=== PATIENT | male | born 1970 | race Caucasian/White ===

== ENCOUNTER → 2020-05-01 14:31 | Outpatient (BNVA) | payer MEDICAID, SELFPAY | PROVIDERS: PCP Internal Medicine Geriatric Medicine; Referring Provider Internal Medicine Geriatric Medicine; Visit Provider Internal Medicine Cardiovascular Disease | DX: I09.9 Rheumatic heart disease, unspecified (principal); I63.9 Cerebral infarction, unspecified; Z51.81 Encounter for therapeutic drug level monitoring; Z79.01 Long term (current) use of anticoagulants; Z95.2 Presence of prosthetic heart valve | CPT/HCPCS: 93005; 99212 ==

== ENCOUNTER → 2020-08-08 15:52 | Outpatient (BNVA) | payer MEDICAID, SELFPAY | PROVIDERS: PCP Internal Medicine Geriatric Medicine; Visit Provider Internal Medicine | DX: Z95.2 Presence of prosthetic heart valve (principal); Z51.81 Encounter for therapeutic drug level monitoring; Z79.01 Long term (current) use of anticoagulants | CPT/HCPCS: 85610; 99211 ==

== ENCOUNTER → 2020-09-05 16:05 | Outpatient (BNVA) | payer MEDICAID, SELFPAY | PROVIDERS: PCP Internal Medicine Geriatric Medicine; Visit Provider Internal Medicine | DX: Z95.2 Presence of prosthetic heart valve (principal); Z51.81 Encounter for therapeutic drug level monitoring; Z79.01 Long term (current) use of anticoagulants | CPT/HCPCS: 85610; 99211 ==

== ENCOUNTER → 2020-10-02 11:51 | Outpatient (BNVA) | payer MEDICAID, SELFPAY | PROVIDERS: PCP Internal Medicine Geriatric Medicine; Visit Provider Internal Medicine | DX: Z95.2 Presence of prosthetic heart valve (principal); Z91.19 Patient's noncompliance with other medical treatment and regimen; Z79.01 Long term (current) use of anticoagulants; Z51.81 Encounter for therapeutic drug level monitoring | CPT/HCPCS: 85610; 99211 ==

== ENCOUNTER → 2021-01-15 15:48 | Outpatient (BNVA) | payer MEDICAID, SELFPAY | PROVIDERS: PCP Internal Medicine Geriatric Medicine; Visit Provider Internal Medicine | DX: Z95.2 Presence of prosthetic heart valve (principal); Z51.81 Encounter for therapeutic drug level monitoring; Z79.01 Long term (current) use of anticoagulants | CPT/HCPCS: 85610; 99211 ==

== ENCOUNTER → 2021-02-12 12:41 | Outpatient (REF) | payer MEDICAID, SELFPAY ==
--- NOTE | 2021-02-12 12:47 | CA_ITS ---
Transthoracic Echocardiogram Patient (Last, First, Middle): Levy Ching E Gender: Male Date of : 1970 Age: 50 Procedure Date: 02/12/2021 Procedure Type: Transthoracic Echocardiogram Location: OP Height: 182.88 cm Weight: 99.79 kg BSA: 2.22 m2 Heart Rate: bpm BP: 110 / 75 mmHg Provider Relations Consultant: SORAIDA/JOEY Referring MD: Grace [facility] Coordinator: Karthik Potter MD Symptoms: Z95.2 - Presence of prosthetic heart valve Study Quality: Fair ECG Rhythm: Sinus Conclusions: - 1. Normal LV systolic function 2. Moderately dilated left atrium 3. Mechanical mitral valve in place with mean gradient of 9 mm Hg, leaflet mobility appears to be normal 4. Normal RV systolic pressure 5. No gross pericardial effusion Findings Left Ventricle Normal left ventricular size, thickness, and systolic function. The visually estimated ejection fraction is between 60-65%. Diastolic function is indeterminate on the basis of available data. Right Ventricle Mildly increased right ventricular cavity size. There is normal right ventricular systolic function. Atria The left atrium is moderately dilated. There is no evidence of interatrial shunt. The right atrium is mildly dilated. Aortic Valve The aortic valve structure and function is likely normal. There is no aortic valve stenosis. There is no aortic valve regurgitation. Mitral Valve A mechanical prosthetic mitral valve is present. The prosthetic mitral valve appears to be functioning normally. The mean mitral valve gradient is 9.00 mmHg. The valve is well seated with no abnormal rocking motion. The leaflet mobility appeared to be normal. The gradient across the valve was still increased for a mechanical prosthetic valve, possible mild stenosis cannot be ruled out Pulmonic Valve The pulmonic valve was not well visualized. Tricuspid Valve There is mild tricuspid valve regurgitation. The right ventricular systolic pressure is normal. Normal right atrial pressure. There is no evidence of pulmonary hypertension. Great Vessels All visible segments of the aorta are normal in size. The pulmonary artery was not well visualized. Venous The inferior vena cava is normal in size and collapses greater than 50% with inspiration. Pericardium/Pleural There is no evidence of pericardial effusion. Prior Study Comparison No significant change compared to prior study dated: 09/14/2019. Measurements 2D Linear Measurements IVSd: 0.86 0.6-0.9/0.6-1.0 cm LVIDd: 5.72 3.9-5.3/4.2-5.9 cm LVIDd Index: 2.58 2.4-3.2/2.2-3.1 cm/m2 LVIDs: 3.85 2.0-3.6 cm LVPWd: 0.92 0.7-1.1 cm Ao Root: 3.00 2.1-3.5 cm LA Diam: 5.00 2.7-3.8/3.0-4.0 cm LAIDs Index: 2.25 1.5-2.3 cm/m2 LV Mass: 243.59 67-162/88-224 g LV Mass Index: 109.72 43-95/49-115 g/m2 LVOT Diam: 2.00 3.0+(-)1.3 cm 2D Systolic Function EF 4C: 62.80 >55% EF 2C: 49.80 >55% EF BiP: 57.20 >55% Mitral Valve MV VTI: 0.57 MV Pk Minesh: 2.04 MV Mn Minesh: 1.47 MV Pk Grad: 17.00 MV Mn Grad: 9.00 MV Pk E: 1.98 MV PK A: 1.10 MV Decel Time: 397.00 E/A: 1.80 E'Lateral: 4.90 E'Medial: 5.44 E/E' Med: 36.40 E/E' Lat: 40.40 PHT: 160.00 MVA PHT: 1.38 MVA Continuity: 0.97 Decel [place]: 3.72 Aortic Valve AoV Pk Minesh: 1.23 AoV Mn Minesh: 0.91 AoV VTI: 0.26 AoV Pk Grad: 6.00 Aov Mn Grad: 4.00 CLAIRE Cont.VTI: 2.09 LVOT LVOT Pk Minesh: 0.84 LVOT Mn Minesh: 0.59 LVOT VTI: 0.18 LVOT Pk Grad: 3.00 LVOT Mn Grad: 2.00 LVOT Diam: 2.00 LVOT Area: 3.14 Diastolic Function MV Pk E: 1.98 MV Pk A: 1.10 E/A: 1.80 E'Medial: 5.44 E/E' Med: 36.40 E' Laterial: 4.90 E/E' Lat: 40.40 Right Ventricle TAPSE (mm): 1.98 TVS' Minesh: 10.90 Tricuspid Valve TR Pk Minesh: 2.96 TR Pk Grad: 35.00 RA Press: 3.00 RVSP: 38.00 Great Vessels Aorta Ao Root-2D: 3.00 2.0-3.7 cm Ao Asc: 2.70 2.1-3.4 cm Ao Arch: 2.90 Updated in Other Vendor System with Status of Final Karthik Potter MD electronically signed on 02/13/2021 9:35:01 AM with status of Final
== END ==
LOC: HO.CARD 12:41
PROVIDERS: Visit Provider Nurse Practitioner Family
DX: I09.9 Rheumatic heart disease, unspecified (principal); Z95.2 Presence of prosthetic heart valve
CPT/HCPCS: 93306

== ENCOUNTER → 2021-02-24 12:44 | Outpatient (BNVA) | payer MEDICAID, SELFPAY | PROVIDERS: PCP Internal Medicine Geriatric Medicine; Referring Provider Internal Medicine Geriatric Medicine; Visit Provider Nurse Practitioner Family | DX: I09.9 Rheumatic heart disease, unspecified (principal); Z95.2 Presence of prosthetic heart valve; Z51.81 Encounter for therapeutic drug level monitoring; Z79.01 Long term (current) use of anticoagulants; Z86.73 Personal history of transient ischemic attack (TIA), and cerebral infarction without residual deficits | CPT/HCPCS: 93005; 99212 ==

== ENCOUNTER → 2021-07-22 15:49 | Outpatient (BNVA) | payer MEDICAID, SELFPAY | PROVIDERS: PCP Internal Medicine Geriatric Medicine; Visit Provider Internal Medicine | DX: Z95.2 Presence of prosthetic heart valve (principal); Z51.81 Encounter for therapeutic drug level monitoring; Z79.01 Long term (current) use of anticoagulants | CPT/HCPCS: 85610; 99211 ==

== ENCOUNTER → 2021-07-31 16:02 | Outpatient (BNVA) | payer MEDICAID, SELFPAY | PROVIDERS: PCP Internal Medicine Geriatric Medicine; Visit Provider Internal Medicine | DX: Z95.2 Presence of prosthetic heart valve (principal); Z51.81 Encounter for therapeutic drug level monitoring; Z79.01 Long term (current) use of anticoagulants | CPT/HCPCS: 85610; 99211 ==

== ENCOUNTER → 2021-12-01 15:33 | Outpatient (BNVA) | payer MEDICAID, SELFPAY | PROVIDERS: PCP Internal Medicine Geriatric Medicine; Visit Provider Internal Medicine | DX: Z95.2 Presence of prosthetic heart valve (principal); Z51.81 Encounter for therapeutic drug level monitoring; Z79.01 Long term (current) use of anticoagulants | CPT/HCPCS: 85610; 99211 ==

== ENCOUNTER → 2022-01-05 16:01 | Outpatient (BNVA) | payer MEDICAID, SELFPAY | PROVIDERS: PCP Internal Medicine Geriatric Medicine; Visit Provider Internal Medicine | DX: Z95.2 Presence of prosthetic heart valve (principal); Z79.01 Long term (current) use of anticoagulants; Z51.81 Encounter for therapeutic drug level monitoring | CPT/HCPCS: 85610; 99211 ==

== ENCOUNTER → 2022-02-02 15:56 | Outpatient (BNVA) | payer MEDICAID, SELFPAY | PROVIDERS: PCP Internal Medicine Geriatric Medicine; Visit Provider Internal Medicine | DX: Z95.2 Presence of prosthetic heart valve (principal); Z79.01 Long term (current) use of anticoagulants; Z51.81 Encounter for therapeutic drug level monitoring | CPT/HCPCS: 85610; 99211 ==

== ENCOUNTER 2022-02-04 | Outpatient (REF) | payer OTHER, SELFPAY ==
--- NOTE | ~2022-02-04 | XR_ITS ---
EXAMINATION: XR KNEE, RIGHT XR KNEE, LEFT XR AP BILATERAL KNEE STANDING CLINICAL INFORMATION: Bilateral knee pain. COMPARISON: None TECHNIQUE: AP bilateral knee standing. 2 views each knee. FINDINGS: AP BILATERAL KNEE: The medial and lateral compartment joint spaces are maintained normal. No bony erosive changes seen. The soft tissues are normal. LEFT KNEE: There is no visible acute fracture, dislocation or subluxation seen. No abnormal joint effusion seen. The soft tissues are normal. RIGHT KNEE: There is no visible acute fracture, dislocation or subluxation seen. No joint effusion or bony erosive changes. There are no loose bodies visualized. XR/XR knee standing BI IMPRESSION: Unremarkable bilateral AP knee. Unremarkable right and left knee.
--- NOTE | ~2022-02-04 | XR_ITS ---
EXAMINATION: XR KNEE, RIGHT XR KNEE, LEFT XR AP BILATERAL KNEE STANDING CLINICAL INFORMATION: Bilateral knee pain. COMPARISON: None TECHNIQUE: AP bilateral knee standing. 2 views each knee. FINDINGS: AP BILATERAL KNEE: The medial and lateral compartment joint spaces are maintained normal. No bony erosive changes seen. The soft tissues are normal. LEFT KNEE: There is no visible acute fracture, dislocation or subluxation seen. No abnormal joint effusion seen. The soft tissues are normal. RIGHT KNEE: There is no visible acute fracture, dislocation or subluxation seen. No joint effusion or bony erosive changes. There are no loose bodies visualized. XR/XR knee LT 2V IMPRESSION: Unremarkable bilateral AP knee. Unremarkable right and left knee.
--- NOTE | ~2022-02-04 | XR_ITS ---
EXAMINATION: XR KNEE, RIGHT XR KNEE, LEFT XR AP BILATERAL KNEE STANDING CLINICAL INFORMATION: Bilateral knee pain. COMPARISON: None TECHNIQUE: AP bilateral knee standing. 2 views each knee. FINDINGS: AP BILATERAL KNEE: The medial and lateral compartment joint spaces are maintained normal. No bony erosive changes seen. The soft tissues are normal. LEFT KNEE: There is no visible acute fracture, dislocation or subluxation seen. No abnormal joint effusion seen. The soft tissues are normal. RIGHT KNEE: There is no visible acute fracture, dislocation or subluxation seen. No joint effusion or bony erosive changes. There are no loose bodies visualized. XR/XR knee RT 2V IMPRESSION: Unremarkable bilateral AP knee. Unremarkable right and left knee.
== END 2022-02-04 00:01 | disposition home or self-care (01) ==
LOC: HO.HOSX
PROVIDERS: Visit Provider Physician Assistant
DX: M17.0 Bilateral primary osteoarthritis of knee (principal)
CPT/HCPCS: 20610; 73560; 73565; J1040

== ENCOUNTER → 2022-02-15 12:53 | Outpatient (REF) | payer OTHER, SELFPAY ==
--- NOTE | 2022-02-15 12:56 | CA_ITS ---
Transthoracic Echocardiogram Patient (Last, First, Middle): Levy Ching E Gender: Male Date of : 1970 Age: 51 Procedure Date: 02/15/2022 Procedure Type: Transthoracic Echocardiogram Location: OP Height: 182.88 cm Weight: 99.79 kg BSA: 2.22 m2 Heart Rate: bpm BP: 100 / 62 mmHg Blower Operator: TO Referring MD: Grace Dave [employer] HAND-Ramonita Symptoms: Z95.2 - Presence of prosthetic heart valve Study Quality: Fair ECG Rhythm: Sinus Conclusions: - The left ventricular systolic function is normal. The calculated ejection fraction is 67% by biplane method. - A mechanical prosthetic mitral valve is present. The prosthetic mitral valve appears to be functioning abnormally. Mean gradient across the prosthetic mitral valve 14mmHg at 86/min. - Mild pulmonary hypertension is present. Findings Left Ventricle Normal left ventricular cavity size. There is normal left ventricular wall thickness. The left ventricular systolic function is normal. The calculated ejection fraction is 67% by biplane method. There is no evidence of regional wall motion abnormalities. There is paradoxical septal motion consistent with post-operative status. Diastolic function is indeterminate on the basis of available data. Right Ventricle Normal right ventricular cavity size and systolic function. Atria The left atrium is severely dilated. The right atrium is normal in size. Aortic Valve There is a normal trileaflet aortic valve. There is no aortic valve stenosis. There is no aortic valve regurgitation. Mitral Valve A mechanical prosthetic mitral valve is present. The prosthetic mitral valve appears to be functioning abnormally. Mean gradient across the prosthetic mitral valve 14mmHg at 86/min. This is elevated. Cannot assess for mitral regurgitation due to shadowing from the prosthesis. Pulmonic Valve There is trace pulmonic valve regurgitation. Tricuspid Valve There is mild tricuspid valve regurgitation. The right ventricular systolic pressure is 46 mmHg. Mild pulmonary hypertension is present. Great Vessels The asc aorta is normal in size. Venous The inferior vena cava is normal in size and collapses greater than 50% with inspiration. Pericardium/Pleural There is no evidence of pericardial effusion. Prior Study Comparison Changes noted compared to prior study dated: 02/12/2021. Increase in mitral gradients (but similar to 2019). Consider fluoroscopy or KALIA as clinically indicated. Measurements 2D Linear Measurements IVSd: 0.93 0.6-0.9/0.6-1.0 cm LVIDd: 4.76 3.9-5.3/4.2-5.9 cm LVIDd Index: 2.14 2.4-3.2/2.2-3.1 cm/m2 LVIDs: 2.50 2.0-3.6 cm LVPWd: 0.99 0.7-1.1 cm LA Diam: 5.60 2.7-3.8/3.0-4.0 cm LAIDs Index: 2.52 1.5-2.3 cm/m2 LV Mass: 197.56 67-162/88-224 g LV Mass Index: 88.99 43-95/49-115 g/m2 LVOT Diam: 2.00 3.0+(-)1.3 cm 2D Systolic Function EF 4C: 66.80 >55% EF 2C: 63.90 >55% EF BiP: 66.50 >55% Mitral Valve MV VTI: 0.66 MV Pk Minesh: 2.69 MV Mn Minesh: 1.83 MV Pk Grad: 29.00 MV Mn Grad: 14.00 MV Pk E: 2.13 MV PK A: 1.89 MV Decel Time: 284.00 E/A: 1.10 E'Lateral: 5.87 E'Medial: 6.74 E/E' Med: 31.60 E/E' Lat: 36.30 PHT: 83.00 MVA PHT: 2.65 MVA Continuity: 0.95 Decel [place]: 7.49 Aortic Valve AoV Pk Minesh: 1.57 AoV Mn Minesh: 1.06 AoV VTI: 0.28 AoV Pk Grad: 10.00 Aov Mn Grad: 5.00 CLAIRE Cont.VTI: 2.26 LVOT LVOT Pk Minesh: 1.09 LVOT Mn Minesh: 0.69 LVOT VTI: 0.20 LVOT Pk Grad: 5.00 LVOT Mn Grad: 2.00 LVOT Diam: 2.00 LVOT Area: 3.14 Diastolic Function MV Pk E: 2.13 MV Pk A: 1.89 E/A: 1.10 E'Medial: 6.74 E/E' Med: 31.60 E' Laterial: 5.87 E/E' Lat: 36.30 Right Ventricle TAPSE (mm): 21.20 TVS' Minesh: 12.60 Tricuspid Valve TR Pk Minesh: 3.08 TR Pk Grad: 38.00 RA Press: 8.00 RVSP: 46.00 Great Vessels Aorta Sinus of Valsalva: 3.05 2.0-3.5 cm Ao Asc: 2.80 2.1-3.4 cm Updated in Other Vendor System with Status of Final Deven Mo MD electronically signed on 02/16/2022 11:55:48 AM with status of Final
== END ==
LOC: HO.CARD 12:53
PROVIDERS: PCP Internal Medicine Geriatric Medicine; Visit Provider Nurse Practitioner Family
DX: I09.9 Rheumatic heart disease, unspecified (principal); Z95.2 Presence of prosthetic heart valve; Z51.81 Encounter for therapeutic drug level monitoring; Z79.01 Long term (current) use of anticoagulants
CPT/HCPCS: 85610; 93306; 99211

== ENCOUNTER → 2022-03-02 15:02 | Outpatient (BNVA) | payer OTHER, SELFPAY | PROVIDERS: PCP Internal Medicine Geriatric Medicine; Referring Provider Internal Medicine Geriatric Medicine; Visit Provider Internal Medicine Cardiovascular Disease | DX: Z95.2 Presence of prosthetic heart valve (principal) | CPT/HCPCS: 93005 ==

== ENCOUNTER 2022-03-05 12:26 | Day surgery (SDC) | payer OTHER, SELFPAY ==
--- NOTE | 2022-03-04 09:21 | P.CONAN_ITS ---
Documented by User: Carmen Tinoco NP 03/04/22 09:25 HPI - Anesthesia Eval Consult details Narrative: 51yo M for Transesophageal Echocardiogram Coumadin for mechanical mitral valve PMFSH Active Problems Active Problems: All Active Problems (Updated 02/04/22 @ 10:26 by Helen Jaime) Bilateral primary osteoarthritis of knee (Acute) Current use of anticoagulant therapy (Acute) Anticoagulation goal of INR 2.5 to 3.5 (Acute) CVA (cerebral vascular accident) (Acute) Rheumatic heart disease (Acute) H/O mitral valve replacement with mechanical valve (Acute) Past Medical History Medical History Anticoagulation goal of INR 2.5 to 3.5 CVA (cerebral vascular accident) Rheumatic heart disease Family History Family History Father CVD (cardiovascular disease) Mother HTN (hypertension) Asthma Surgical History Surgical History H/O mitral valve replacement with mechanical valve History of appendectomy Social History Social History Alcohol intake: never Patient Tobacco Use Status: Former Tobacco user Quit Date: 2013 Tobacco use type: Cigarette Years Smoked: 15 +/- Use of substances other than those prescribed or required for medical reasons: No Are you DNR?: No Advance Directives: No Advance Directives Information Provided: Yes Current occupational status: employed 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, 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 Allergies Allergy/AdvReac Type Severity Reaction Status Date / Time No Known Allergies Allergy Verified 02/15/22 14:11 Home Medications Medication Instructions Recorded Confirmed Last Taken Type aspirin 81 mg tablet,delayed 81 mg PO DAILY 05/01/20 03/05/22 03/04/22 History release levothyroxine 125 mcg tablet 125 mcg PO DAILY 05/01/20 03/05/22 03/05/22 History simvastatin 10 mg tablet 10 mg PO BEDTIME 05/01/20 03/05/22 Unknown History warfarin 1 mg tablet 10 mg PO DAILY 05/01/20 03/05/22 Unknown History warfarin 5 mg tablet 12 mg PO DAILY 05/01/20 03/05/22 Unknown History cyclobenzaprine 10 mg tablet 10 mg PO TID PRN Back Pain 03/02/22 03/05/22 Unknown History Exam Exam Date and Time: March 04, 2022920 Assessment and Plan Assessment Anesthesia Assessment: Chart Reviewed Documented by User: Whit Judge MD 03/05/22 13:47 [facility] Past Medical History Medical History Anticoagulation goal of INR 2.5 to 3.5 CVA (cerebral vascular accident) Rheumatic heart disease Family History Family History Father CVD (cardiovascular disease) Mother HTN (hypertension) Asthma Family history of problems with anesthesia: No Surgical History Surgical History H/O mitral valve replacement with mechanical valve History of appendectomy History of Problems with Anesthesia: No Social History Social History Alcohol intake: never Patient Tobacco Use Status: Former Tobacco user Quit Date: 2013 Tobacco use type: Cigarette Years Smoked: 15 +/- Use of substances other than those prescribed or required for medical reasons: No Are you DNR?: No Advance Directives: No Advance Directives Information Provided: Yes Current occupational status: employed 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, 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 Allergies Allergy/AdvReac Type Severity Reaction Status Date / Time No Known Allergies Allergy Verified 02/15/22 14:11 Home Medications Medication Instructions Recorded Confirmed Last Taken Type aspirin 81 mg tablet,delayed 81 mg PO DAILY 05/01/20 03/05/22 03/04/22 History release levothyroxine 125 mcg tablet 125 mcg PO DAILY 05/01/20 03/05/22 03/05/22 History simvastatin 10 mg tablet 10 mg PO BEDTIME 05/01/20 03/05/22 Unknown History warfarin 1 mg tablet 10 mg PO DAILY 05/01/20 03/05/22 Unknown History warfarin 5 mg tablet 12 mg PO DAILY 05/01/20 03/05/22 Unknown History cyclobenzaprine 10 mg tablet 10 mg PO TID PRN Back Pain 03/02/22 03/05/22 Unknown History Exam Airway Mallampati Class: III TM Dist: >3cm Neck ROM: Full Assessment and Plan Assessment Anesthesia Assessment: Anesthesia Plan Discussed Final Anesthetic Review Family History of Problems with Anesthesia: No History of Problems with Anesthesia: No NPO: Yes ASA Class: III Final Preanesthetic Review: No Changes in Pt Med Stat, Meds/Allgs Chart Reviewed, Consent Obtained/Reviewed and Anes Risks/Benef Reviewed Patient Risk: Intermediate Procedure Risk: Low Anesthetic Plan Anesthetic Plan: MAC: Disposition: Standard PACU
[2022-03-05 12:56] VITALS: BMI 29.8
[2022-03-05 13:08] VITALS: BP 130/83; PULSE 78; RESP 16; TEMP 36.4; O2SAT 98
[2022-03-05] MEDS: Lactated Ringers 1,000 ML 100 ML IVCONT (13:20)
[2022-03-05 13:25] LABS: Prothrombin Time 36.4 SEC (10.0-13.1)
--- NOTE | 2022-03-05 13:47 | MHC.SHP ---
Pre-Procedural Eval Section A Date of Service: 03/05/22 The patient is an INPATIENT: No Changes since office visit: Yes Patient answered all questions; No Cold of Flu in the past 2 weeks, No New Medical Problems and No Changes in Medication The History & Physical has been completed within 30 days and I have reviewed it.: Yes Section B Chief Complaint: Presence of prosthetic heart valve Allergies: Allergies Allergy/AdvReac Type Severity Reaction Status Date / Time No Known Allergies Allergy Verified 02/15/22 14:11 Plan I have reviewed the history and physical and performed a pertinent physical examination on my patient. No changes have occurred unless specified.
[2022-03-05 14:25] VITALS: BP 111/64; PULSE 97; RESP 11; TEMP 36.4; O2SAT 98
[2022-03-05 14:40] VITALS: BP 109/67; PULSE 94; RESP 14; O2SAT 98
[2022-03-05 14:55] VITALS: BP 133/80; PULSE 80; RESP 16; TEMP 36.4; O2SAT 99
== END 2022-03-05 15:34 | disposition home or self-care (01) ==
PROVIDERS: Nurse Practitioner; PCP Internal Medicine Geriatric Medicine; Visit Provider Internal Medicine Cardiovascular Disease
PROC: (CPT 93312; principal; 2022-03-05 14:20)
DX: I09.9 Rheumatic heart disease, unspecified (principal); Z95.2 Presence of prosthetic heart valve; Z86.73 Personal history of transient ischemic attack (TIA), and cerebral infarction without residual deficits; Z79.01 Long term (current) use of anticoagulants; Z79.82 Long term (current) use of aspirin; Z79.899 Other long term (current) drug therapy; Z87.891 Personal history of nicotine dependence
CPT/HCPCS: 93312; 36415; 85610; J2250

== ENCOUNTER → 2022-03-19 08:35 | Outpatient (BNVA) | payer OTHER, SELFPAY | PROVIDERS: PCP Internal Medicine Geriatric Medicine; Visit Provider Physician Assistant | DX: M17.0 Bilateral primary osteoarthritis of knee (principal) | CPT/HCPCS: 20610; J7323 ==

== ENCOUNTER → 2022-03-25 14:55 | Outpatient (BNVA) | payer OTHER, SELFPAY | PROVIDERS: PCP Internal Medicine Geriatric Medicine; Visit Provider Internal Medicine | DX: Z95.2 Presence of prosthetic heart valve (principal); Z51.81 Encounter for therapeutic drug level monitoring; Z79.01 Long term (current) use of anticoagulants | CPT/HCPCS: 85610; G0248 ==

== ENCOUNTER → 2022-03-26 11:11 | Outpatient (BNVA) | payer OTHER, SELFPAY | PROVIDERS: PCP Internal Medicine Geriatric Medicine; Visit Provider Physician Assistant | DX: M17.0 Bilateral primary osteoarthritis of knee (principal) | CPT/HCPCS: 20610; J7323 ==

== ENCOUNTER → 2022-04-02 11:28 | Outpatient (BNVA) | payer OTHER, SELFPAY | PROVIDERS: PCP Internal Medicine Geriatric Medicine; Visit Provider Physician Assistant | DX: M17.0 Bilateral primary osteoarthritis of knee (principal) | CPT/HCPCS: 20610; J7323 ==

== ENCOUNTER → 2022-05-20 09:28 | Outpatient (BNVA) | payer OTHER, SELFPAY | PROVIDERS: PCP Internal Medicine Geriatric Medicine; Visit Provider Internal Medicine | DX: Z79.01 Long term (current) use of anticoagulants (principal) ==

== ENCOUNTER 2022-06-01 11:27 | Outpatient (REF) | payer OTHER, SELFPAY ==
--- NOTE | ~2022-06-01 | XR_ITS ---
EXAMINATION: XR LUMBOSACRAL SPINE WITH OBLIQUES CLINICAL INFORMATION: Low back pain. COMPARISON: Radiograph of the lumbar spine 01/26/2018. TECHNIQUE: AP, both oblique, and lateral views of the lumbar spine. Lateral view of the lumbosacral junction. FINDINGS: No acute compression deformity or malalignment. Mild disc height loss and facet arthropathy at L5-S1. SI joints are symmetric. No significant paraspinal soft tissue abnormality. XR/XR lumbar spine 4V min IMPRESSION: 1. No acute compression deformity or malalignment. 2. Mild lumbar spondylosis at L5-S1.
== END 2022-06-01 11:28 | disposition home or self-care (01) ==
LOC: HO.XRAY 11:27
PROVIDERS: PCP Emergency Medicine; Visit Provider Emergency Medicine
DX: M54.41 Lumbago with sciatica, right side (principal); M54.42 Lumbago with sciatica, left side
CPT/HCPCS: 72110

== ENCOUNTER → 2022-06-04 10:28 | Outpatient (BNVA) | payer OTHER, SELFPAY | PROVIDERS: PCP Internal Medicine Geriatric Medicine; Visit Provider Internal Medicine | DX: Z95.2 Presence of prosthetic heart valve (principal); Z51.81 Encounter for therapeutic drug level monitoring; Z79.01 Long term (current) use of anticoagulants | CPT/HCPCS: 85610; 99211 ==

== ENCOUNTER → 2022-06-17 11:57 | Outpatient (BNVA) | payer OTHER, SELFPAY | PROVIDERS: PCP Internal Medicine Geriatric Medicine; Visit Provider Internal Medicine | DX: Z79.01 Long term (current) use of anticoagulants (principal) ==

== ENCOUNTER → 2022-06-21 10:01 | Outpatient (BNVA) | payer OTHER, SELFPAY | PROVIDERS: PCP Internal Medicine Geriatric Medicine; Visit Provider Internal Medicine | DX: Z79.01 Long term (current) use of anticoagulants (principal) ==

== ENCOUNTER → 2022-06-28 14:12 | Outpatient (BNVA) | payer OTHER, SELFPAY | PROVIDERS: PCP Internal Medicine Geriatric Medicine; Visit Provider Internal Medicine | DX: Z13.89 Encounter for screening for other disorder (principal) ==

== ENCOUNTER → 2022-06-29 14:24 | Outpatient (BNVA) | payer OTHER, SELFPAY | PROVIDERS: PCP Internal Medicine Geriatric Medicine; Visit Provider Internal Medicine | DX: Z79.01 Long term (current) use of anticoagulants (principal) ==

== ENCOUNTER → 2022-07-13 12:23 | Outpatient (BNVA) | payer OTHER, SELFPAY | PROVIDERS: PCP Internal Medicine Geriatric Medicine; Visit Provider Internal Medicine | DX: Z79.01 Long term (current) use of anticoagulants (principal) ==

== ENCOUNTER → 2022-07-20 11:49 | Outpatient (BNVA) | payer OTHER, SELFPAY | PROVIDERS: PCP Internal Medicine Geriatric Medicine; Visit Provider Internal Medicine | DX: Z79.01 Long term (current) use of anticoagulants (principal) ==

== ENCOUNTER → 2022-08-03 11:06 | Outpatient (BNVA) | payer OTHER, SELFPAY | PROVIDERS: PCP Internal Medicine Geriatric Medicine; Visit Provider Internal Medicine | DX: Z13.89 Encounter for screening for other disorder (principal) ==

== ENCOUNTER → 2022-08-11 10:24 | Outpatient (BNVA) | payer OTHER, SELFPAY | PROVIDERS: PCP Internal Medicine Geriatric Medicine; Visit Provider Internal Medicine | DX: Z13.89 Encounter for screening for other disorder (principal) ==

== ENCOUNTER → 2022-08-18 13:20 | Outpatient (BNVA) | payer OTHER, SELFPAY | PROVIDERS: PCP Internal Medicine Geriatric Medicine; Visit Provider Internal Medicine | DX: Z13.89 Encounter for screening for other disorder (principal) ==

== ENCOUNTER → 2022-09-02 12:10 | Outpatient (BNVA) | payer OTHER, SELFPAY | PROVIDERS: PCP Internal Medicine Geriatric Medicine; Visit Provider Internal Medicine | DX: Z79.01 Long term (current) use of anticoagulants (principal) ==

== ENCOUNTER → 2022-09-17 11:03 | Outpatient (BNVA) | payer OTHER, SELFPAY | PROVIDERS: PCP Internal Medicine Geriatric Medicine; Visit Provider Internal Medicine | DX: Z79.01 Long term (current) use of anticoagulants (principal) ==

== ENCOUNTER → 2022-09-30 08:47 | Outpatient (BNVA) | payer OTHER, SELFPAY | PROVIDERS: PCP Internal Medicine Geriatric Medicine; Visit Provider Internal Medicine | DX: Z79.01 Long term (current) use of anticoagulants (principal) ==

== ENCOUNTER → 2022-10-14 12:11 | Outpatient (BNVA) | payer OTHER, SELFPAY | PROVIDERS: PCP Internal Medicine Geriatric Medicine; Visit Provider Internal Medicine | DX: Z79.01 Long term (current) use of anticoagulants (principal) ==

== ENCOUNTER → 2022-10-28 11:03 | Outpatient (BNVA) | payer OTHER, SELFPAY | PROVIDERS: PCP Internal Medicine Geriatric Medicine; Visit Provider Internal Medicine | DX: Z79.01 Long term (current) use of anticoagulants (principal) ==

== ENCOUNTER → 2022-11-15 11:16 | Outpatient (BNVA) | payer OTHER, SELFPAY | PROVIDERS: PCP Internal Medicine Geriatric Medicine; Visit Provider Internal Medicine | DX: Z79.01 Long term (current) use of anticoagulants (principal) ==

== ENCOUNTER → 2022-11-26 12:02 | Outpatient (BNVA) | payer OTHER, SELFPAY | PROVIDERS: PCP Internal Medicine Geriatric Medicine; Visit Provider Internal Medicine | DX: Z79.01 Long term (current) use of anticoagulants (principal) ==

== ENCOUNTER → 2022-12-14 08:51 | Outpatient (BNVA) | payer OTHER, SELFPAY | PROVIDERS: PCP Internal Medicine Geriatric Medicine; Visit Provider Internal Medicine ==

== ENCOUNTER → 2022-12-29 14:45 | Outpatient (BNVA) | payer OTHER, SELFPAY | PROVIDERS: PCP Internal Medicine Geriatric Medicine; Visit Provider Internal Medicine ==

== ENCOUNTER → 2023-01-11 09:56 | Outpatient (BNVA) | payer OTHER, SELFPAY | PROVIDERS: PCP Internal Medicine Geriatric Medicine; Visit Provider Internal Medicine ==

== ENCOUNTER → 2023-01-13 12:07 | Outpatient (BNVA) | payer OTHER, SELFPAY | PROVIDERS: PCP Internal Medicine Geriatric Medicine; Visit Provider Internal Medicine ==

== ENCOUNTER → 2023-01-17 11:44 | Outpatient (BNVA) | payer OTHER, SELFPAY | PROVIDERS: PCP Internal Medicine Geriatric Medicine; Visit Provider Internal Medicine ==

== ENCOUNTER → 2023-01-19 09:46 | Outpatient (BNVA) | payer OTHER, SELFPAY | PROVIDERS: PCP Internal Medicine Geriatric Medicine; Visit Provider Internal Medicine ==

== ENCOUNTER → 2023-01-24 10:06 | Outpatient (BNVA) | payer OTHER, SELFPAY | PROVIDERS: PCP Internal Medicine Geriatric Medicine; Visit Provider Internal Medicine ==

== ENCOUNTER 2023-01-28 10:52 | Outpatient (REF) | payer OTHER, SELFPAY ==
[2023-01-28 13:58] LABS: CDiff Gene PCR NEGATIVE (Negative)
[2023-01-28 14:59] LABS: Adenovirus F 40/41 Not Detected (Not Detect.); Astrovirus Not Detected (Not Detect.); Campylobacter Not Detected (Not Detect.); Cryptosporidium Not Detected (Not Detect.); Cyclospora cayetanensis Not Detected (Not Detect.); E. coli EAEC Not Detected (Not Detect.); E. coli EPEC Detected (Not Detect.); E. coli ETEC Not Detected (Not Detect.); E. coli STEC Not Detected (Not Detect.); Entamoeba histolytica Not Detected (Not Detect.); Giardia lamblia Not Detected (Not Detect.); Norovirus GI/GII Not Detected (Not Detect.); Plesiomonas shigelloides Not Detected (Not Detect.); Rotavirus A Not Detected (Not Detect.); Salmonella Not Detected (Not Detect.); Sapovirus Not Detected (Not Detect.); Shigella sp./EIEC Not Detected (Not Detect.); Vibrio Not Detected (Not Detect.); Vibrio Cholerae Not Detected (Not Detect.); Yersinia enterocolitica Not Detected (Not Detect.)
== END 2023-01-28 10:53 | disposition home or self-care (01) ==
LOC: HO.HHCLNP 10:52
PROVIDERS: Visit Provider Emergency Medicine
DX: R19.7 Diarrhea, unspecified (principal)
CPT/HCPCS: 87177; 87209; 87338; 87493; 87507

== ENCOUNTER → 2023-02-01 15:46 | Outpatient (BNVA) | payer OTHER, SELFPAY | PROVIDERS: PCP Internal Medicine Geriatric Medicine; Visit Provider Internal Medicine ==

== ENCOUNTER → 2023-02-10 08:29 | Outpatient (BNVA) | payer OTHER, SELFPAY | PROVIDERS: PCP Internal Medicine Geriatric Medicine; Visit Provider Internal Medicine ==

== ENCOUNTER → 2023-02-17 10:03 | Outpatient (BNVA) | payer OTHER, SELFPAY | PROVIDERS: PCP Internal Medicine Geriatric Medicine; Visit Provider Internal Medicine ==

== ENCOUNTER → 2023-02-24 13:41 | Outpatient (BNVA) | payer OTHER, SELFPAY | PROVIDERS: PCP Internal Medicine Geriatric Medicine; Visit Provider Internal Medicine ==

== ENCOUNTER → 2023-03-03 08:45 | Outpatient (BNVA) | payer OTHER, SELFPAY | PROVIDERS: PCP Internal Medicine Geriatric Medicine; Visit Provider Internal Medicine ==

== ENCOUNTER → 2023-03-11 09:08 | Outpatient (BNVA) | payer OTHER, SELFPAY | PROVIDERS: PCP Internal Medicine Geriatric Medicine; Visit Provider Internal Medicine ==

== ENCOUNTER 2023-03-24 09:16 | Outpatient (AMB) | payer OTHER, SELFPAY ==
--- NOTE | 2023-03-24 09:39 | MHC.OFFVISCO ---
Intake Intake Visit Reasons: Anticoagulation Allergies No Known Allergies Allergy (Verified 03/24/23 09:29) Medication List - Last Reconciled 03/24/23 by Juanita Dinero RN acetaminophen (Tylenol Extra Strength) PO aspirin 81 mg PO DAILY [CENTRUM PLUS MVI OVER 50 PO] [HERBAL LIFE SHAKE PO] [HERBAL LIFE TEA PO] levothyroxine 125 mcg PO DAILY lidocaine 5% patches topical loperamide mg PO .PRN simvastatin 10 mg PO BEDTIME warfarin 12 mg See Protocol PO DAILY warfarin 10 mg See Protocol PO DAILY Nursing Note METER TO METER CORRELATION WITH ACCURATE DEMOMSTRATION OF SKILLS, DATE RESET IN METER AND EXPLAINED HAVING THE CORRECT DATE IS NECESSARY TO RUN TESTS INR:2.3 JUST OUT OF THERAPEUTIC RANGE ATE [place]ENS YESTERDAY , ENC [place] AND RD FOODS WITH GREENS Medications and supplements reviewed No changes in health, diet, medications, or supplements, Denies any signs and symptoms of bleeding or bruising or clotting. Bleeding, bruising, clotting discussed Nutritional guidance given Dose: KEEP SAME 12MG X 1 DAY/ 10MG X 6 DAYS F/U INR: 2 WEEKS 04/07/23 Patient verbalizes understanding of instructions given Anti-Coag Initial Assessment Social Hx Patient Tobacco Use Status: Former Tobacco user Quit Date: 2013 Tobacco use type: Cigarette alcohol intake: never Questionnaires HAS-BLED Does the patient had uncontrolled Hypertension?: No Does the patient have renal disease?: No Does the patient have liver disease?: No Does the patient have a history of stroke?: Yes Has the patient had major bleeding or predisposition to bleeding?: Yes Does the patient have labile INRs?: Yes Is the patient over 65 years of age?: No Is the patient on medications that gives them a predisposition to bleeding?: Yes Does the patient use alcohol?: No HAS-BLED Score: 4 CHADSVASC Age: <65 Gender: Male Does the patient have a history of CHF?: No Does the patient have a history of Hypertension?: No Does the patient have a history of Stroke/TIA/Thromboembolism?: Yes Does the patient have a history of Vascular Disease (prior SC, PAD or aortic plaque)?: Yes (CHOLESTEROL AND MITRAL MECHANCAL HEART VALVE) Does the patient have a history of Diabetes?: No CHADS VACS Score: 3 Waqas Prediction Score Rsk VTE Active Cancer: No Previous VTE, excluding superficial vein thrombosis: No Reduced mobility: No Already known Thrombophilic Condition: Yes With-in last month Trauma and/or Surgery: No Heart and/or Respiratory Failure: No Acute Myocardial infarction and/or Ischemic Stroke: Yes Acute Infection and/or Rheumatologic Disorder: Yes Obesity (BMI 30 or greater): No Ongoing Hormonal Treatment: No Score: 5 Waqas Score less than 4; Low Risk of VTE Waqas Score 4 or greater; High Risk of VTE Coding Level of Care Code Est Patient Level 2 Diagnoses Current use of anticoagulant therapy Z79.01 Comment METER TO METER CORRELATION, RISK AND MED ASSESSMENT Results AMB INR Fingerstick AMB INR Fingerstick 2.3 Last Edit by Juanita Dinero RN on 03/24/23 09:38 NO INTERFACING EXPANSE FAILURES MANUAL ENTRY Assessment & Plan Assessment & Plan (1) Current use of anticoagulant therapy: Code(s): 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
[2023-03-24 09:55] LABS: Prothrombin Time Whole Bld POC 27.9 sec (11.1-13.5); ~PT, ~INR - Anti Coag Clinic 2.3 (0.9-1.1)
== END 2023-03-24 09:46 | disposition home or self-care (01) ==
LOC: HO.ACS 09:16
PROVIDERS: PCP Internal Medicine Geriatric Medicine; Visit Provider Internal Medicine
DX: Z79.01 Long term (current) use of anticoagulants (principal)

== ENCOUNTER → 2023-03-24 09:16 | Outpatient (BNVA) | payer OTHER, SELFPAY | PROVIDERS: PCP Internal Medicine Geriatric Medicine; Visit Provider Internal Medicine | DX: Z95.2 Presence of prosthetic heart valve (principal); Z51.81 Encounter for therapeutic drug level monitoring; Z79.01 Long term (current) use of anticoagulants | CPT/HCPCS: 85610; 99212 ==

== ENCOUNTER 2023-03-26 09:32 | Outpatient (REF) | payer OTHER, SELFPAY ==
[2023-03-26 09:50] LABS: MANUAL DIFF FLAG NO
[2023-03-26 10:08] LABS: Basophils Absolute Auto 0.1 X10*3/uL (0.0-0.2); Eosinophils Absolute Auto 0.1 X10*3/uL (0.0-0.4); Hematocrit 44.9 % (42.0-52.0); Hemoglobin 14.9 g/dl (14.0-18.0); Imm Gran Abs Auto 0.02 X10*3/uL (0.00-0.03); Imm Gran Pct Auto 0.5 % (0.0-0.4); Lymphocytes Absolute Auto 0.9 X10*3/uL (1.2-4.9); Lymphocytes Percent Auto 21.4 % (20-40); Mean Corpuscular HGB Conc 33.2 g/dl (31.0-36.0); Mean Corpuscular Hemoglobin 28.9 pg (27.0-33.0); Mean Corpuscular Volume 87.2 fL (80.0-98.0); Mean Platelet Volume 11.7 fL (9.4-12.4); Monocytes Absolute Auto 0.7 X10*3/uL (0.1-1.2); Monocytes Percent Auto 16.2 % (2-11); Neutrophils Absolute Auto 2.3 x10*3/uL (2.0-8.3); Neutrophils Percent Auto 57.9 % (45-73); Platelet Count 220 X10*3/uL (160-400); Red Blood Count 5.15 X10*6/uL (4.60-5.80); Red Cell Distribution Width 13.7 % (11.0-16.0)
[2023-03-26 10:38] LABS: Alanine Aminotransferase 27 U/L (0-40); Albumin Level 4.3 g/dL (3.5-5.0); Alkaline Phosphatase 82 U/L (39-117); Anion Gap 13 (12-20); Aspartate Amino Transferase 35 U/L (5-37); Bilirubin Total 0.6 mg/dL (0.0-1.0); Blood Urea Nitrogen 15 mg/dL (9-16); Calcium 9.7 mg/dL (8.4-10.2); Carbon Dioxide 26 mmol/L (22-29); Chloride 103 mmol/L (96-108); Cholesterol 245 mg/dL (<200); Estimated Glomerular Filt Rate > 60; Glucose Random 99 mg/dL (60-115); HDL Cholesterol 52 mg/dL (>40); LDL Cholesterol Calculated 165 mg/dL (<100); Sodium 138 mmol/L (135-145); Total Protein 7.8 g/dL (6.5-8.0); Triglycerides 142 mg/dL (<150)
[2023-03-26 10:54] LABS: TSH reflex Free T4 6.01 uIU/mL (0.32-4.0)
[2023-03-26 11:32] LABS: Free T4 (Free Thyroxine) 0.95 ng/dL (0.71-1.85)
== END 2023-03-26 09:33 | disposition home or self-care (01) ==
LOC: HO.LAB 09:32
PROVIDERS: Visit Provider Internal Medicine Geriatric Medicine
DX: Z00.00 Encounter for general adult medical examination without abnormal findings (principal); E03.9 Hypothyroidism, unspecified; E78.00 Pure hypercholesterolemia, unspecified; Z79.01 Long term (current) use of anticoagulants
CPT/HCPCS: 36415; 80053; 80061; 84439; 84443; 85025

== ENCOUNTER → 2023-04-07 09:17 | Outpatient (BNVA) | payer OTHER, SELFPAY | PROVIDERS: PCP Internal Medicine Geriatric Medicine; Visit Provider Internal Medicine ==

== ENCOUNTER → 2023-04-13 11:45 | Outpatient (BNVA) | payer OTHER, SELFPAY | PROVIDERS: PCP Internal Medicine Geriatric Medicine; Visit Provider Internal Medicine ==

== ENCOUNTER → 2023-04-20 11:17 | Outpatient (BNVA) | payer OTHER, SELFPAY | PROVIDERS: PCP Internal Medicine Geriatric Medicine; Visit Provider Internal Medicine ==

== ENCOUNTER → 2023-04-28 08:48 | Outpatient (BNVA) | payer OTHER, SELFPAY | PROVIDERS: PCP Internal Medicine Geriatric Medicine; Visit Provider Internal Medicine ==

== ENCOUNTER → 2023-05-04 07:40 | Outpatient (REF) | payer OTHER, SELFPAY ==
--- NOTE | 2023-05-04 07:42 | CA_ITS ---
Transthoracic Echocardiogram Patient (Last, First, Middle): Levy Ching E Gender: Male Date of : 1970 Age: 52 Procedure Date: 05/04/2023 Procedure Type: Transthoracic Echocardiogram Location: OP Height: 180.34 cm Weight: 95.26 kg BSA: 2.15 m2 Heart Rate: 82 bpm BP: 146 / 78 mmHg Sloop Captain: SB Referring MD: Karthik Potter MD Symptoms: Z95.2 - Presence of prosthetic heart valve Study Quality: Adequate ECG Rhythm: Sinus Conclusions: - The left ventricular systolic function is normal. The calculated ejection fraction is 56% by biplane method. - A mechanical prosthetic mitral valve is present. The prosthetic mitral valve appears to be functioning abnormally. Mean gradient across the mitral valve 10 mm Hg at 70/min. Effective orifice area by continuity equation 0.77sqcm. Pressure half time within normal range 80ms. Discrepant values. Could be related to patient-prosthetic mismatch. High gradients could also related to measurement from smaller central jet area of the bileaflet valve. Findings Left Ventricle Normal left ventricular cavity size. There is normal left ventricular wall thickness. The left ventricular systolic function is normal. The calculated ejection fraction is 56% by biplane method. There is no evidence of regional wall motion abnormalities. Diastolic function is indeterminate on the basis of available data. Right Ventricle Normal right ventricular cavity size and systolic function. Atria The left atrium is moderately dilated. The right atrium is normal in size. Aortic Valve There is a normal trileaflet aortic valve. There is no aortic valve stenosis. There is no aortic valve regurgitation. Mitral Valve A mechanical prosthetic mitral valve is present. The prosthetic mitral valve appears to be functioning abnormally. Mean gradient across the mitral valve 10 mm Hg at 70/min. Effective orifice area by continuity equation 0.77sqcm. Pressure half time within normal range 80ms. Discrepant values. Could be related to patient-prosthetic mismatch. High gradients could also related to measurement from smaller central jet area of the bileaflet valve. Pulmonic Valve The pulmonic valve is likely normal. Tricuspid Valve There is mild tricuspid valve regurgitation. Borderline RVSP. Great Vessels The asc aorta is normal in size. Venous The inferior vena cava is normal in size and collapses greater than 50% with inspiration. Pericardium/Pleural There is no evidence of pericardial effusion. Prior Study Comparison No significant change compared to prior study dated: 03/05/2022. Prior KALIA images reviewed. Measurements 2D Linear Measurements IVSd: 1.01 0.6-0.9/0.6-1.0 cm LVIDd: 4.93 3.9-5.3/4.2-5.9 cm LVIDd Index: 2.29 2.4-3.2/2.2-3.1 cm/m2 LVIDs: 3.67 2.0-3.6 cm LVPWd: 0.90 0.7-1.1 cm LA Diam: 5.10 2.7-3.8/3.0-4.0 cm LAIDs Index: 2.37 1.5-2.3 cm/m2 LV Mass: 207.61 67-162/88-224 g LV Mass Index: 96.56 43-95/49-115 g/m2 LVOT Diam: 2.00 3.0+(-)1.3 cm 2D Systolic Function EF 4C: 53.40 >55% EF 2C: 59.30 >55% EF BiP: 55.70 >55% Mitral Valve MV VTI: 0.71 MV Pk Minesh: 2.43 MV Mn Minesh: 1.67 MV Pk Grad: 24.00 MV Mn Grad: 12.00 MV Pk E: 2.24 MV PK A: 1.32 MV Decel Time: 274.00 E/A: 1.70 E'Lateral: 4.26 E'Medial: 4.35 E/E' Med: 51.50 E/E' Lat: 52.60 PHT: 80.00 MVA PHT: 2.75 MVA Continuity: 0.82 Decel [place]: 8.18 Aortic Valve AoV Pk Minesh: 1.17 AoV Pk Grad: 5.00 CLAIRE: 2.28 LVOT LVOT Pk Minesh: 0.87 LVOT Mn Minesh: 0.60 LVOT VTI: 0.17 LVOT Pk Grad: 3.00 LVOT Mn Grad: 2.00 LVOT Diam: 2.00 LVOT Area: 3.14 Diastolic Function MV Pk E: 2.24 MV Pk A: 1.32 E/A: 1.70 E'Medial: 4.35 E/E' Med: 51.50 E' Laterial: 4.26 E/E' Lat: 52.60 Right Ventricle TAPSE (mm): 20.90 TVS' Minesh: 11.30 Tricuspid Valve TR Pk Minesh: 2.85 TR Pk Grad: 32.00 RA Press: 3.00 RVSP: 35.00 Great Vessels Aorta Sinus of Valsalva: 2.70 2.0-3.5 cm Ao Asc: 3.00 2.1-3.4 cm Pulmonary Valve PV Pk Minesh: 0.81 Peak PV Grad: 3.00 LA Pk Minesh: 2.29 Updated in Other Vendor System with Status of Final Deven Mo MD electronically signed on 05/05/2023 3:24:58 PM with status of Final
== END ==
LOC: HO.CARD 07:40
PROVIDERS: PCP Internal Medicine Geriatric Medicine; Visit Provider Internal Medicine Cardiovascular Disease
DX: Z95.2 Presence of prosthetic heart valve (principal)
CPT/HCPCS: 93306

== ENCOUNTER → 2023-05-04 07:42 | Outpatient (BNV) | payer OTHER, SELFPAY | PROVIDERS: PCP Internal Medicine Geriatric Medicine; Visit Provider Internal Medicine | DX: T82.01XA Breakdown (mechanical) of heart valve prosthesis, initial encounter (principal); Z95.2 Presence of prosthetic heart valve | CPT/HCPCS: 93306 ==

== ENCOUNTER → 2023-05-05 14:48 | Outpatient (BNVA) | payer OTHER, SELFPAY | PROVIDERS: PCP Internal Medicine Geriatric Medicine; Visit Provider Internal Medicine ==

== ENCOUNTER → 2023-05-12 11:56 | Outpatient (BNVA) | payer OTHER, SELFPAY | PROVIDERS: PCP Internal Medicine Geriatric Medicine; Visit Provider Internal Medicine ==

== ENCOUNTER → 2023-05-26 13:10 | Outpatient (BNVA) | payer OTHER, SELFPAY | PROVIDERS: PCP Internal Medicine Geriatric Medicine; Visit Provider Internal Medicine ==

== ENCOUNTER 2023-06-02 15:19 | Outpatient (AMB) | payer OTHER, SELFPAY ==
[2023-06-02 15:52] VITALS: BP 136/76; PULSE 83; BMI 30.1
--- NOTE | 2023-06-02 15:52 | MHC.OFFVIS ---
Intake Vital Signs 06/02/23 15:52 Height 6 ft Weight 221 lb 12.56 oz BMI 30.1 BP 136/76 Blood Pressure Location Lt brachial Position Sitting Pulse 83 Intake Visit Reasons: R/S 1 year follow up Intake Note: 1 yr f/up pt its feeling fine Camera Control Operator Required: No Accompanied by: Self / Same As Patient Allergies No Known Allergies Allergy (Verified 05/26/23 14:11) Medication List - Last Reconciled 06/02/23 by Grace Dave NP-C acetaminophen (Tylenol Extra Strength) PO aspirin 81 mg PO DAILY [CENTRUM PLUS MVI OVER 50 PO] [HERBAL LIFE SHAKE PO] [HERBAL LIFE TEA PO] levothyroxine 137 mcg PO QAM lidocaine 5% patches topical loperamide mg PO .PRN simvastatin 10 mg PO BEDTIME warfarin 12 mg See Protocol PO DAILY warfarin 10 mg See Protocol PO DAILY HPI R/S 1 year follow up HPI Details Levy is a 52-year-old male with past medical history of rheumatic heart disease, mechanical mitral valve approximally 27 years ago, chronic anticoagulation who presents for follow-up after recent echocardiogram. Today he reports he has been feeling well with no concerning symptoms. He denies chest discomfort at rest or with activity. No shortness of breath, palpitations, presyncope, syncope, PND, orthopnea or edema. He reports good activity tolerance. Taking all meds as directed. No bleeding issues reported. Follows with the [facility]. 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 Review of Systems Const All systems reviewed & are unremarkable except as noted in HPI and below Denies chills, Denies fatigue, Denies fever(s), Denies frequent falls, Denies weakness, Denies weight gain and Denies weight loss ENT Denies dizziness Card Denies chest pain, Denies leg edema, Denies lightheadedness, Denies palpitations, Denies dyspnea and Denies dyspnea on exertion Resp Denies cough, Denies dyspnea and Denies dyspnea on exertion GI Denies hematochezia Musc Denies abnormal gait, Denies muscle weakness, Denies numbness, Denies radiating pain into limb and Denies tingling Neuro Denies abnormal gait, Denies dizziness, Denies frequent falls, Denies numbness, Denies tingling and Denies weakness Endo Denies fatigue and Denies palpitations Physical Exam Vital Signs: Last Vital Signs Pulse 83 06/02/23 15:52 BP 136/76 06/02/23 15:52 BMI result Body Mass Index 30.1 Const General: cooperative, healthy appearing, comfortable and no acute distress Orientation/consciousness: patient oriented x3 Neck Neck: Yes normal visual inspection Resp Effort & Inspection: normal respiratory effort Auscultation: clear to auscultation bilaterally, no crackles, no rales, no rhonchi and no wheezes Cardio Other: [place] mechanical valve auscultated left chest Jugular venous distension: no JVD Rate: regular rate Rhythm: regular rhythm Heart sounds: S1 normal heart sound present, S2 normal heart sound present, no murmurs and no rubs Neuro General: patient oriented x3 Extrem General: Yes normal to inspection and No no pedal edema Psych Appearance: grossly normal Mental Status: mental status grossly normal Speech and movement: Normal speech and movement present Office Procedures EKG Details: Today, read by me, normal sinus rhythm, inferior Q-waves, unchanged from prior EKG, rate 83, QTC 472 milliseconds [id number], Complete Assessment & Plan Assessment & Plan (1) H/O mitral valve replacement with mechanical valve: Comment: age 17 Code(s): Z95.2 - Presence of prosthetic heart valve Plan: History of mechanical mitral valve, age 17. Echocardiogram done 05/04/2023 shows EF 56%, mechanical prosthetic mitral valve present, functioning abnormally with mean gradient 10 mmHg, images compared by reading provider to last echocardiogram done 03/05/2022 and reported to have no significant changes. Results reviewed by Dr. Potter as well. Patient has no reported symptoms. [place] valve click noted on examination. He is on Coumadin for anticoagulation. INR goal 2.5-3.5. Follows with the [facility]. No bleeding issues reported. Reviewed need for endocarditis prophylaxis prior to dental work. He states he is always compliant with this. Will plan for repeat echo 1 year from last. Cardiology follow-up in 1 year, sooner if needed (2) Rheumatic heart disease: Code(s): I09.9 - Rheumatic heart disease, unspecified Plan: As above (3) Current use of anticoagulant therapy: Code(s): Z79.01 - USP (current) use of anticoagulants Plan: As above Plan Time spent on chart review, documentation, interview assessment Orders: Orders CA echo transthoracic complete 11 Months Z95.2 - Presence of prosthetic heart valve Coding Level of Care Code Est Pt Level 3 (17618) Diagnoses H/O mitral valve replacement with mechanical valve Z95.2 Rheumatic heart disease I09.9 Current use of anticoagulant therapy Z79.01 CPT Codes EKG - CPT: [id number], Complete ([id number]) Time Spent (min) 24
== END 2023-06-02 16:25 | disposition home or self-care (01) ==
PROVIDERS: PCP Internal Medicine Geriatric Medicine; Visit Provider Nurse Practitioner Family
DX: Z95.2 Presence of prosthetic heart valve (principal); I09.9 Rheumatic heart disease, unspecified; Z79.01 Long term (current) use of anticoagulants
CPT/HCPCS: 93010; 99213

== ENCOUNTER → 2023-06-02 15:19 | Outpatient (BNVA) | payer OTHER, SELFPAY | PROVIDERS: PCP Internal Medicine Geriatric Medicine; Visit Provider Nurse Practitioner Family | DX: I09.9 Rheumatic heart disease, unspecified (principal); Z95.2 Presence of prosthetic heart valve; Z79.01 Long term (current) use of anticoagulants | CPT/HCPCS: 93005 ==

== ENCOUNTER → 2023-06-09 13:45 | Outpatient (BNVA) | payer OTHER, SELFPAY | PROVIDERS: PCP Internal Medicine Geriatric Medicine; Visit Provider Internal Medicine ==

== ENCOUNTER → 2023-06-13 16:10 | Outpatient (BNVA) | payer OTHER, SELFPAY | PROVIDERS: PCP Internal Medicine Geriatric Medicine; Visit Provider Internal Medicine ==

== ENCOUNTER → 2023-06-23 14:26 | Outpatient (BNVA) | payer OTHER, SELFPAY | PROVIDERS: PCP Internal Medicine Geriatric Medicine; Visit Provider Internal Medicine ==

== ENCOUNTER → 2023-07-07 10:17 | Outpatient (BNVA) | payer OTHER, SELFPAY | PROVIDERS: PCP Internal Medicine Geriatric Medicine; Visit Provider Internal Medicine ==

== ENCOUNTER → 2023-07-15 11:07 | Outpatient (BNVA) | payer OTHER, SELFPAY | PROVIDERS: PCP Internal Medicine Geriatric Medicine; Visit Provider Internal Medicine ==

== ENCOUNTER → 2023-07-28 14:29 | Outpatient (BNVA) | payer OTHER, SELFPAY | PROVIDERS: PCP Internal Medicine Geriatric Medicine; Visit Provider Internal Medicine ==

== ENCOUNTER → 2023-08-11 08:18 | Outpatient (BNVA) | payer OTHER, SELFPAY | PROVIDERS: PCP Internal Medicine Geriatric Medicine; Visit Provider Internal Medicine ==

== ENCOUNTER → 2023-08-26 10:09 | Outpatient (BNVA) | payer OTHER, SELFPAY | PROVIDERS: PCP Internal Medicine Geriatric Medicine; Visit Provider Internal Medicine ==

== ENCOUNTER → 2023-09-08 13:49 | Outpatient (BNVA) | payer OTHER, SELFPAY | PROVIDERS: PCP Internal Medicine Geriatric Medicine; Visit Provider Internal Medicine ==

== ENCOUNTER → 2023-09-22 15:11 | Outpatient (BNVA) | payer OTHER, SELFPAY | PROVIDERS: PCP Internal Medicine Geriatric Medicine; Visit Provider Internal Medicine ==

== ENCOUNTER → 2023-10-07 14:35 | Outpatient (BNVA) | payer OTHER, SELFPAY | PROVIDERS: PCP Internal Medicine Geriatric Medicine; Visit Provider Internal Medicine ==

== ENCOUNTER → 2023-10-20 13:20 | Outpatient (BNVA) | payer OTHER, SELFPAY | PROVIDERS: PCP Internal Medicine Geriatric Medicine; Visit Provider Internal Medicine | DX: Z79.01 Long term (current) use of anticoagulants (principal) ==

== ENCOUNTER → 2023-11-03 14:17 | Outpatient (BNVA) | payer OTHER, SELFPAY | PROVIDERS: PCP Internal Medicine Geriatric Medicine; Visit Provider Internal Medicine ==

== ENCOUNTER → 2023-11-17 14:31 | Outpatient (BNVA) | payer OTHER, SELFPAY | PROVIDERS: PCP Internal Medicine Geriatric Medicine; Visit Provider Internal Medicine ==

== ENCOUNTER → 2023-12-05 15:20 | Outpatient (BNVA) | payer OTHER, SELFPAY | PROVIDERS: PCP Internal Medicine Geriatric Medicine; Visit Provider Internal Medicine ==

== ENCOUNTER → 2023-12-19 15:00 | Outpatient (BNVA) | payer OTHER, SELFPAY | PROVIDERS: PCP Internal Medicine Geriatric Medicine; Visit Provider Internal Medicine ==

== ENCOUNTER 2023-12-27 12:18 | Outpatient (REF) | payer OTHER, SELFPAY ==
[2023-12-27 15:25] LABS: Free T4 (Free Thyroxine) 1.08 ng/dL (0.71-1.85)
== END 2023-12-27 12:19 | disposition home or self-care (01) ==
LOC: HO.HHCL 12:18
PROVIDERS: Visit Provider Internal Medicine Geriatric Medicine
DX: E03.9 Hypothyroidism, unspecified (principal)
CPT/HCPCS: 36415; 84439; 84443

== ENCOUNTER → 2024-01-05 16:05 | Outpatient (BNVA) | payer OTHER, SELFPAY | PROVIDERS: PCP Internal Medicine Geriatric Medicine; Visit Provider Internal Medicine ==

== ENCOUNTER → 2024-01-10 08:46 | Outpatient (BNVA) | payer OTHER, SELFPAY | PROVIDERS: PCP Internal Medicine Geriatric Medicine; Visit Provider Internal Medicine ==

== ENCOUNTER → 2024-01-19 14:19 | Outpatient (BNVA) | payer OTHER, SELFPAY | PROVIDERS: PCP Internal Medicine Geriatric Medicine; Visit Provider Internal Medicine ==

== ENCOUNTER → 2024-02-02 10:40 | Outpatient (BNVA) | payer OTHER, SELFPAY | PROVIDERS: PCP Internal Medicine Geriatric Medicine; Visit Provider Internal Medicine ==

== ENCOUNTER → 2024-02-16 12:42 | Outpatient (BNVA) | payer OTHER, SELFPAY | PROVIDERS: PCP Internal Medicine Geriatric Medicine; Visit Provider Internal Medicine ==

== ENCOUNTER → 2024-03-01 12:51 | Outpatient (BNVA) | payer OTHER, SELFPAY | PROVIDERS: PCP Internal Medicine Geriatric Medicine; Visit Provider Internal Medicine ==

== ENCOUNTER → 2024-03-15 14:05 | Outpatient (BNVA) | payer OTHER, SELFPAY | PROVIDERS: PCP Internal Medicine Geriatric Medicine; Visit Provider Internal Medicine ==

== ENCOUNTER 2024-03-30 09:15 | Outpatient (AMB) | payer OTHER, SELFPAY ==
[2024-03-30 09:29] LABS: ~PT, ~INR - Anti Coag Clinic 3.2 (0.9-1.1)
--- NOTE | 2024-03-30 09:38 | MHC.OFFVISCO ---
Intake Intake Visit Reasons: Anticoagulation Allergies No Known Allergies Allergy (Verified 03/30/24 09:22) Medication List - Last Reconciled 03/30/24 by Ida Gaytan RN acetaminophen (Tylenol Extra Strength) PO aspirin 81 mg PO DAILY [CENTRUM PLUS MVI OVER 50 PO] [HERBAL LIFE SHAKE PO] [HERBAL LIFE TEA PO] levothyroxine 137 mcg PO QAM lidocaine 5% patches topical loperamide mg PO .PRN simvastatin 10 mg PO BEDTIME warfarin 12 mg See Protocol PO DAILY warfarin 10 mg See Protocol PO DAILY Nursing Note Pt to [facility] for meter to meter check. Pt performed INR test demonstrating good technique with ease and efficiency. Last 5 INR's compared to reported INR's in [employer]. Last 5 INR's did not correlate. Pt could not understand why they did not correlate. He stated sometimes he does a test not on a scheduled day but to check on his INR if he took tylenol and wanted to check if INR went up. Highest INR in pt's meter was 4.2. Pt informed he needs to check his INR on the scheduled day and must report the INR to [employer] in order for [facility] to accurately dose him. INR result on pt's meter: 3.1 INR result done by ACS: 3.2 Pt therapeutic range is 2.5-3.5 Pt states no change in health, diet, supplements or meds No signs and symptoms of bleeding or bruising or clotting Dose: continue same dose of 10mg X 6 days and 12mg X 1 day() Retest: 2 weeks Anti-Coag Initial Assessment Social Hx Patient Tobacco Use Status: Former Tobacco user Tobacco use type: Cigarette alcohol intake: never Questionnaires HAS-BLED Does the patient had uncontrolled Hypertension?: No Does the patient have renal disease?: No Does the patient have liver disease?: No Does the patient have a history of stroke?: Yes Has the patient had major bleeding or predisposition to bleeding?: No Does the patient have labile INRs?: No Is the patient over 65 years of age?: No Is the patient on medications that gives them a predisposition to bleeding?: Yes Does the patient use alcohol?: No HAS-BLED Score: 2 CHADSVASC Age: <65 Gender: Male Does the patient have a history of CHF?: No Does the patient have a history of Hypertension?: No Does the patient have a history of Stroke/TIA/Thromboembolism?: Yes Does the patient have a history of Vascular Disease (prior [place], PAD or aortic plaque)?: Yes Does the patient have a history of Diabetes?: No CHADS VACS Score: 3 Waqas Prediction Score Rsk VTE Active Cancer: No Previous VTE, excluding superficial vein thrombosis: No Reduced mobility: No Already known Thrombophilic Condition: Yes With-in last month Trauma and/or Surgery: No Elderly 70 year or older: No Heart and/or Respiratory Failure: No Acute Myocardial infarction and/or Ischemic Stroke: Yes Acute Infection and/or Rheumatologic Disorder: Yes Obesity (BMI 30 or greater): No Ongoing Hormonal Treatment: No Score: 5 Waqas Score less than 4; Low Risk of VTE Waqas Score 4 or greater; High Risk of VTE Coding Level of Care Code Est Patient Level 2 Diagnoses Current use of anticoagulant therapy Z79.01 Time Spent (min) 30 Results AMB INR Fingerstick AMB INR Fingerstick 3.1 Last Edit by Ida Gaytan RN on 03/30/24 09:35 meter to meter pt's meter 3.1 Assessment & Plan Assessment & Plan (1) Current use of anticoagulant therapy: Code(s): Z79.01 - lobsterman (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
== END 2024-03-30 10:39 | disposition home or self-care (01) ==
LOC: HO.ACS 09:15
PROVIDERS: PCP Internal Medicine Geriatric Medicine; Visit Provider Internal Medicine
DX: Z79.01 Long term (current) use of anticoagulants (principal)

== ENCOUNTER → 2024-03-30 09:15 | Outpatient (BNVA) | payer OTHER, SELFPAY | PROVIDERS: PCP Internal Medicine Geriatric Medicine; Visit Provider Internal Medicine | DX: Z95.2 Presence of prosthetic heart valve (principal); Z79.01 Long term (current) use of anticoagulants; Z51.81 Encounter for therapeutic drug level monitoring | CPT/HCPCS: 85610; 99212 ==

== ENCOUNTER 2024-04-07 09:52 | Outpatient (REF) | payer OTHER, SELFPAY ==
[2024-04-07 10:04] LABS: MANUAL DIFF FLAG NO
[2024-04-07 10:41] LABS: Basophils Absolute Auto 0.1 X10*3/uL (0.0-0.2); Basophils Percent Auto 1.6 % (0-2); Eosinophils Absolute Auto 0.1 X10*3/uL (0.0-0.4); Eosinophils Percent Auto 1.8 % (0-4); Hematocrit 43.9 % (42.0-52.0); Hemoglobin 14.6 g/dl (14.0-18.0); Imm Gran Abs Auto 0.01 X10*3/uL (0.00-0.03); Imm Gran Pct Auto 0.3 % (0.0-0.4); Lymphocytes Absolute Auto 0.8 X10*3/uL (1.2-4.9); Lymphocytes Percent Auto 20.5 % (20-40); Mean Corpuscular HGB Conc 33.3 g/dl (31.0-36.0); Mean Corpuscular Hemoglobin 29.3 pg (27.0-33.0); Mean Corpuscular Volume 88.2 fL (80.0-98.0); Mean Platelet Volume 11.4 fL (9.4-12.4); Monocytes Absolute Auto 0.6 X10*3/uL (0.1-1.2); Monocytes Percent Auto 14.2 % (2-11); Neutrophils Absolute Auto 2.4 x10*3/uL (2.0-8.3); Neutrophils Percent Auto 61.6 % (45-73); Platelet Count 184 X10*3/uL (160-400); Red Blood Count 4.98 X10*6/uL (4.60-5.80); Red Cell Distribution Width 13.8 % (11.0-16.0); White Blood Count 3.9 X10*3/uL (4.8-10.8)
[2024-04-07 11:20] LABS: Alanine Aminotransferase 34 U/L (0-40); Albumin Level 4.3 g/dL (3.5-5.0); Alkaline Phosphatase 86 U/L (39-117); Anion Gap 13 (12-20); Aspartate Amino Transferase 37 U/L (5-37); Bilirubin Total 0.4 mg/dL (0.0-1.0); Blood Urea Nitrogen 19 mg/dL (9-16); Calcium 9.5 mg/dL (8.4-10.2); Carbon Dioxide 28 mmol/L (22-29); Chloride 105 mmol/L (96-108); Cholesterol 208 mg/dL (<200); Estimated Glomerular Filt Rate > 60; Glucose Random 97 mg/dL (60-115); HDL Cholesterol 53 mg/dL (>40); LDL Cholesterol Calculated 132 mg/dL (<100); Potassium 3.9 mmol/L (3.3-5.1); Sodium 142 mmol/L (135-145); Total Protein 7.5 g/dL (6.5-8.0); Triglycerides 116 mg/dL (<150)
[2024-04-07 11:26] LABS: Prostate Specific Antigen 0.19 ng/mL (<0.05-4.0)
[2024-04-07 11:27] LABS: HIV AB/AG Nonreactive (Nonreactive); HIV Num 1 0.05 S/CO (0.00-0.99); TSH reflex Free T4 4.92 uIU/mL (0.32-4.0); ~HepC Num1 0.12 S/CO (0.00-0.79); ~Hepatitis C Antibody Nonreactive (Nonreactive)
[2024-04-07 11:58] LABS: Free T4 (Free Thyroxine) 1.04 ng/dL (0.71-1.85)
== END 2024-04-07 09:53 | disposition home or self-care (01) ==
LOC: HO.LAB 09:52
PROVIDERS: PCP Internal Medicine Geriatric Medicine; Visit Provider Internal Medicine Geriatric Medicine
DX: Z00.00 Encounter for general adult medical examination without abnormal findings (principal); Z12.5 Encounter for screening for malignant neoplasm of prostate; E03.9 Hypothyroidism, unspecified; Z11.4 Encounter for screening for human immunodeficiency virus [HIV]; Z11.59 Encounter for screening for other viral diseases
CPT/HCPCS: 36415; 80053; 80061; 84153; 84439; 84443; 85025; 86803; 87389

== ENCOUNTER → 2024-04-19 13:36 | Outpatient (BNVA) | payer OTHER, SELFPAY | PROVIDERS: PCP Internal Medicine Geriatric Medicine; Visit Provider Internal Medicine ==

== ENCOUNTER → 2024-05-02 15:04 | Outpatient (REF) | payer OTHER, SELFPAY ==
--- NOTE | 2024-05-02 15:06 | CA_ITS ---
Transthoracic Echocardiogram Patient (Last, First, Middle): Levy Ching E Gender: Male Date of : 1970 Age: 53 Procedure Date: 05/02/2024 Procedure Type: Transthoracic Echocardiogram Location: OP Height: 182.88 cm Weight: 99.79 kg BSA: 2.22 m2 Heart Rate: bpm BP: 122 / 68 mmHg Senior Fund Accountant: LUIS E Referring MD: Grace Dave NP-Ramonita Supervisor Chassis Assembly: Karthik Potter MD Symptoms: Z95.2 - Presence of prosthetic heart valve Study Quality: Good ECG Rhythm: Sinus Conclusions: - 1. Normal LV ejection fraction of 60-65% 2. Abnormal function of mechanical mitral valve with mean gradient of 12-14 mm Hg, etiology is unclear 3. Severely dilated left atrium 4. Moderately elevated right ventricular systolic pressure 5. No gross pericardial effusion Findings Left Ventricle Normal left ventricular size, thickness, and systolic function. The visually estimated ejection fraction is between 60-65%. Diastolic function is indeterminate on the basis of available data. Right Ventricle Normal right ventricular cavity size and systolic function. Atria The left atrium is severely dilated. There is no evidence of interatrial shunt. The right atrium is mildly dilated. Aortic Valve Normal aortic valve structure and function. There is no aortic valve stenosis. There is no aortic valve regurgitation. Mitral Valve The prosthetic mitral valve appears to be functioning abnormally. mean gradient across the mitral valve are increased at 12-14 mm Hg. No clear mitral regurgitation noted. The valve is well-seated. Leaflet mobility is not well visualized on this study due to artifact Pulmonic Valve The pulmonic valve was not well visualized. Tricuspid Valve Normal tricuspid valve structure. There is mild tricuspid valve regurgitation. Normal right atrial pressure. Moderate pulmonary hypertension is present. Great Vessels All visible segments of the aorta are normal in size. The pulmonary artery was not well visualized. Venous The inferior vena cava is normal in size and collapses greater than 50% with inspiration. Pericardium/Pleural There is no evidence of pericardial effusion. Prior Study Comparison Changes noted compared to prior study dated: 05/04/2023. mean gradient across mechanical mitral valve are further increase. RV systolic pressures increased Recommendations, Care & Conclusions Consider a KALIA if clinically appropriate. Measurements 2D Linear Measurements IVSd: 1.06 0.6-0.9/0.6-1.0 cm LVIDd: 5.01 3.9-5.3/4.2-5.9 cm LVIDd Index: 2.26 2.4-3.2/2.2-3.1 cm/m2 LVIDs: 3.08 2.0-3.6 cm Ao Root: 2.60 2.1-3.5 cm LA Diam: 5.10 2.7-3.8/3.0-4.0 cm LAIDs Index: 2.30 1.5-2.3 cm/m2 LVOT Diam: 2.00 3.0+(-)1.3 cm Mitral Valve MV VTI: 0.53 MV Pk Minesh: 2.23 MV Mn Minesh: 1.65 MV Pk Grad: 20.00 MV Mn Grad: 12.00 MV Pk E: 2.47 MV Decel Time: 163.00 E'Lateral: 6.53 E'Medial: 5.77 E/E' Med: 42.80 E/E' Lat: 37.80 PHT: 48.00 MVA PHT: 4.58 Decel [place]: 15.17 Aortic Valve AoV Pk Minesh: 1.50 AoV Mn Minesh: 1.02 AoV VTI: 0.30 AoV Pk Grad: 9.00 Aov Mn Grad: 5.00 LVOT LVOT Diam: 2.00 LVOT Area: 3.14 Diastolic Function MV Pk E: 2.47 E'Medial: 5.77 E/E' Med: 42.80 E' Laterial: 6.53 E/E' Lat: 37.80 Right Ventricle TAPSE (mm): 24.00 TVS' Minesh: 14.00 Tricuspid Valve TR Pk Minesh: 3.45 TR Pk Grad: 48.00 RA Press: 3.00 RVSP: 51.00 Great Vessels Aorta Ao Root-2D: 2.60 2.0-3.7 cm Ao Asc: 2.80 2.1-3.4 cm Pulmonary Valve PV Pk Minesh: 0.94 Peak PV Grad: 4.00 Updated in Other Vendor System with Status of Final Karthik Potter MD electronically signed on 05/03/2024 12:19:58 PM with status of Final
== END ==
LOC: HO.CARD 15:04
PROVIDERS: PCP Internal Medicine Geriatric Medicine; Visit Provider Nurse Practitioner Family
DX: Z95.2 Presence of prosthetic heart valve (principal)
CPT/HCPCS: 93306

== ENCOUNTER → 2024-05-02 15:06 | Outpatient (BNV) | payer OTHER, SELFPAY | PROVIDERS: PCP Internal Medicine Geriatric Medicine; Visit Provider Internal Medicine Cardiovascular Disease | DX: I51.7 Cardiomegaly (principal); I36.1 Nonrheumatic tricuspid (valve) insufficiency; T82.09XA Other mechanical complication of heart valve prosthesis, initial encounter | CPT/HCPCS: 93306 ==

== ENCOUNTER → 2024-05-04 07:11 | Outpatient (BNVA) | payer OTHER, SELFPAY | PROVIDERS: PCP Internal Medicine Geriatric Medicine; Visit Provider Internal Medicine ==

== ENCOUNTER → 2024-05-17 12:25 | Outpatient (BNVA) | payer OTHER, SELFPAY | PROVIDERS: PCP Internal Medicine Geriatric Medicine; Visit Provider Internal Medicine ==

== ENCOUNTER → 2024-05-31 15:20 | Outpatient (BNVA) | payer OTHER, SELFPAY | PROVIDERS: PCP Internal Medicine Geriatric Medicine; Visit Provider Internal Medicine ==

== ENCOUNTER 2024-07-13 07:24 | Day surgery (SDC) | payer OTHER, SELFPAY ==
--- NOTE | 2024-07-12 10:29 | P.CONAN_ITS ---
Documented by User: Carmen Tinoco NP 07/12/24 10:32 HPI - Anesthesia Eval Consult details Narrative: 53yo M for Transesophageal Echocardiogram MVR (rheumatic) > 20 years ago, CVA, on coumadin PMF Active Problems Active Problems: All Active Problems Abnormal echocardiogram (Acute) Lumbosacral radiculitis (Acute) Thoracic aortic atherosclerosis (Acute) Bilateral primary osteoarthritis of knee (Acute) Current use of anticoagulant therapy (Acute) Anticoagulation goal of INR 2.5 to 3.5 (Acute) CVA (cerebral vascular accident) (Acute) Rheumatic heart disease (Acute) H/O mitral valve replacement with mechanical valve (Acute) Past Medical History Medical History Anticoagulation goal of INR 2.5 to 3.5 CVA (cerebral vascular accident) Rheumatic heart disease Family History Family History Father CVD (cardiovascular disease) Mother HTN (hypertension) Asthma Family history of problems with anesthesia: No Surgical History Surgical History History of appendectomy H/O mitral valve replacement with mechanical valve History of Problems with Anesthesia: No Social History Social History Household Members Other:: mother and mother in law Are you a primary customer care associate to a significant other at home: No Do you presently have visiting nurse or other home services: No Alcohol intake: never Patient Tobacco Use Status: Former Tobacco user Tobacco use type: Cigarette Years Smoked: 15 +/- Have you been hit, kicked, punched, or otherwise hurt by someone within the past year? 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 Allergies Allergy/AdvReac Type Severity Reaction Status Date / Time No Known Allergies Allergy Verified 07/13/24 08:07 Home Medications ?Medication ?Instructions ?Recorded ?Confirmed ?Last Taken ?Type aspirin 81 mg tablet,delayed 81 mg PO DAILY 12/0307/13/24 03/04/22 History release simvastatin 10 mg tablet 10 mg PO BEDTIME 05/01/20 07/13/24 Unknown History warfarin 1 mg tablet 10 mg PO DAILY 05/01/20 07/13/24 Unknown History warfarin 5 mg tablet 12 mg PO DAILY 05/01/20 07/13/24 Unknown History CENTRUM PLUS MVI OVER 50 PO 02/17/23 06/14/24 Unknown History HERBAL LIFE SHAKE PO 02/17/23 06/14/24 Unknown History HERBAL LIFE TEA PO 02/17/23 06/14/24 Unknown History acetaminophen [Tylenol Extra PO 02/17/23 06/14/24 Unknown History Strength] lidocaine 5 % topical patch patch topical 02/17/23 06/14/24 Unknown History loperamide 2 mg capsule mg PO .PRN 02/17/23 06/14/24 Unknown History levothyroxine 137 mcg tablet 137 mcg PO QAM 04/07/23 07/13/24 07/13/24 History amoxicillin 500 mg tablet 2,000 mg PO 06/14/24 06/14/24 Unknown History Exam Pertinent Lab Results Pertinent Lab Results: Laboratory Tests 04/07/24 10:03 WBC 3.9 L Hgb 14.6 Hct 43.9 Plt Count 184 Sodium 142 Potassium 3.9 Chloride 105 Carbon Dioxide 28 BUN 19 H Creatinine 1.00 Narrative Narrative: ECHO 04/2024 Conclusions: - 1. Normal LV ejection fraction of 60-65% 2. Abnormal function of mechanical mitral valve with mean gradient of 12-14 mm Hg, etiology is unclear 3. Severely dilated left atrium 4. Moderately elevated right ventricular systolic pressure 5. No gross pericardial effusion Assessment and Plan Assessment Anesthesia Assessment: Chart Reviewed Final Anesthetic Review Family History of Problems with Anesthesia: No History of Problems with Anesthesia: No Documented by User: Yvrose Rogers MD 07/13/24 09:23 [facility] Past Medical History Medical History Anticoagulation goal of INR 2.5 to 3.5 CVA (cerebral vascular accident) Rheumatic heart disease Family History Family History Father CVD (cardiovascular disease) Mother HTN (hypertension) Asthma Surgical History Surgical History History of appendectomy H/O mitral valve replacement with mechanical valve Social History Social History Household Members Other:: mother and mother in law Are you a primary customer care associate to a significant other at home: No Do you presently have visiting nurse or other home services: No Alcohol intake: never Patient Tobacco Use Status: Former Tobacco user Tobacco use type: Cigarette Years Smoked: 15 +/- Have you been hit, kicked, punched, or otherwise hurt by someone within the past year? 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 Allergies Allergy/AdvReac Type Severity Reaction Status Date / Time No Known Allergies Allergy Verified 07/13/24 08:07 Home Medications ?Medication ?Instructions ?Recorded ?Confirmed ?Last Taken ?Type aspirin 81 mg tablet,delayed 81 mg PO DAILY 05/01/20 07/13/24 03/04/22 History release simvastatin 10 mg tablet 10 mg PO BEDTIME 05/01/20 07/13/24 Unknown History warfarin 1 mg tablet 10 mg PO DAILY 05/01/20 07/13/24 Unknown History warfarin 5 mg tablet 12 mg PO DAILY 05/01/20 07/13/24 Unknown History CENTRUM PLUS MVI OVER 50 PO 02/17/23 06/14/24 Unknown History HERBAL LIFE SHAKE PO 02/17/23 06/14/24 Unknown History HERBAL LIFE TEA PO 02/17/23 06/14/24 Unknown History acetaminophen [Tylenol Extra PO 02/17/23 06/14/24 Unknown History Strength] lidocaine 5 % topical patch patch topical 02/17/23 06/14/24 Unknown History loperamide 2 mg capsule mg PO .PRN 02/17/23 06/14/24 Unknown History levothyroxine 137 mcg tablet 137 mcg PO QAM 04/07/23 07/13/24 07/13/24 History amoxicillin 500 mg tablet 2,000 mg PO 06/14/24 06/14/24 Unknown History Exam Airway Mallampati Class: II TM Dist: >3cm Neck ROM: Full Heart: rrr Lungs: cta Assessment and Plan Assessment Anesthesia Assessment: Anesthesia Plan Discussed Final Anesthetic Review NPO: Yes ASA Class: III Final Preanesthetic Review: No Changes in Pt Med Stat, Meds/Allgs Chart Reviewed and Consent Obtained/Reviewed Patient Risk: Intermediate Procedure Risk: Intermediate Anesthetic Plan Anesthetic Plan: MAC: Disposition: Standard PACU
[2024-07-13 07:49] VITALS: BMI 29.9
[2024-07-13] MEDS: Lactated Ringers 1,000 ML 100 ML IVCONT (07:51)
[2024-07-13 08:03] VITALS: BP 121/76; PULSE 75; RESP 18; TEMP 36.7; O2SAT 99
[2024-07-13 08:15] LABS: INTERNATIONAL NORM RATIO 3.3 (0.9-1.1); Prothrombin Time 39.1 SEC (10.9-12.4)
--- NOTE | 2024-07-13 08:58 | MHC.SHP ---
Pre-Procedural Eval Section A - 24 Hr Update-Section A only Date of Service: 07/13/24 Section B - Complete if H&P > 30 days Chief Complaint: Presence of prosthetic heart valve Details of Present Illness: Patient has increased gradient across prosthetic valve, question prosthetic valve stenosis. Relevant Family History (Specify if Yes): No Relevant Social History: Other (specify) Present Medications: see Short Stay Collaborative assessment Medical History: Significant History History of Previous Operations: Relevant previous surgery/procedure and date(s) Allergies: Allergies Allergy/AdvReac Type Severity Reaction Status Date / Time No Known Allergies Allergy Verified 07/13/24 08:07 Review of Systems Sugical H&P ROS: Negative: Constitution, Cardiovascular, Respiratory, Neurological, Psychiatric, Hem-Onc, Allergic/Immunologic, Gastrointestinal, Genitourinary, Musculoskeletal, Integumentary, Endocrine and Eyes/Ears/Nose/Throat Exam Surgical H&P Exam: Normal: HEENT, Normal: Lungs, Normal: Extremities, Normal: Abdomen, Normal: Skin and Normal: Neurological and Significant Findings: Heart (Gaines opening and closing click of mitral valve) Plan Diagnosis/Plan: Unchanged I have reviewed the history and physical and performed a pertinent physical examination on my patient. No changes have occurred unless specified. Time Spent With Patient Time: Total time managing care of this patient today ____ minutes.
--- NOTE | 2024-07-13 08:59 | CA_ITS ---
Transesophageal Echocardiogram Patient (Last, First, Middle): Levy Ching E Gender: Male Date of : 1970 Age: 53 Procedure Date: 07/13/2024 Procedure Type: Transesophageal Echocardiogram Location: OP Height: 172.72 cm Weight: kg Executive Personal Assistant: Referring MD: Karthik Potter MD Annealer: Karthik Potter MD Symptoms: Evaluate prosthetic mitral valve Conclusion: ??? 1. Normally functioning mechanical prosthetic [place] mitral valve 2. Normal LV ejection fraction 60 65% 3. No intracardiac thrombi or masses or vegetations 4. No intracardiac shunting 5. Mild atherosclerotic changes in the aorta Findings Procedure Information Consent was obtained prior to the procedure. Pre KALIA oral cavity was checked and revealed mild overcrowding. The adult 3D probe was passed with no difficulty. This was a technically good study. Left Ventricle Normal left ventricular size, thickness, and systolic function. The visually estimated ejection fraction is between 60-65%. Diastolic function is indeterminate on the basis of available data. There is no evidence of a mass in the left ventricle. Right Ventricle Normal right ventricular cavity size and systolic function. Atria The left atrium is mildly dilated. There is no evidence of interatrial shunt. There is no evidence of thrombus or mass in the left atrium. The left upper, right upper and right lower pulmonary injury normal into the left atrium. The left atrial appendage was identified multiple views without any thrombi or masses. The right atrium is normal in size. There is no evidence of thrombus or mass in the right atrium. The IVC and SVC drain normally into the right atrium. Aortic Valve Normal aortic valve structure and function. There is no aortic valve stenosis. There is no evidence of a mass on the aortic valve. There is no aortic valve regurgitation. Mitral Valve A mechanical prosthetic mitral valve is present. The prosthetic mitral valve appears to be functioning normally. The valve is well seated without abnormal rocking motion. There is no evidence of periprosthetic mitral regurgitation. Does increased gradient noted through the central orifice. The lateral and medial orifice have normal flow. The leaflet opening is unrestricted with normal leaflet motion. The valve function appears to be normal Pulmonic Valve The pulmonic valve is normal. There is no mass noted on the pulmonic valve. There is trace pulmonic valve regurgitation. Tricuspid Valve Normal tricuspid valve structure. There is mild tricuspid valve regurgitation. There is no evidence of a mass on the tricuspid valve. Great Vessels All visible segments of the aorta are normal in size. Small plaque is seen in the arch and descending thoracic aorta. The visualized portions of the pulmonary artery and branches are normal. Venous The inferior vena cava is normal in size and collapses greater than 50% with inspiration. Pericardium/Pleural There is no evidence of pericardial effusion. Measurements Mitral Valve MV VTI: 0.47 MV Pk Minesh: 2.12 MV Mn Minesh: 1.65 MV Pk Grad: 18.00 MV Mn Grad: 12.00 Updated by Karthik Potter on 01:16 PM with Status of Final Karthik Potter MD electronically signed on 07/14/2024 1:16:56 PM with status of Final
[2024-07-13 10:12] VITALS: BP 186/66; PULSE 89; RESP 16; TEMP 36.2; O2SAT 97
[2024-07-13 10:25] VITALS: BP 119/78; PULSE 87; RESP 16; O2SAT 100
[2024-07-13 10:40] VITALS: BP 121/91; PULSE 82; RESP 16; TEMP 36.2; O2SAT 100
== END 2024-07-13 11:15 | disposition home or self-care (01) ==
PROVIDERS: Nurse Practitioner; PCP Internal Medicine Geriatric Medicine; Visit Provider Internal Medicine Cardiovascular Disease
PROC: (CPT 93312; principal; 2024-07-13 09:30)
DX: R93.1 Abnormal findings on diagnostic imaging of heart and coronary circulation (principal); Z95.2 Presence of prosthetic heart valve; I09.9 Rheumatic heart disease, unspecified; Z86.73 Personal history of transient ischemic attack (TIA), and cerebral infarction without residual deficits; Z79.01 Long term (current) use of anticoagulants; Z79.82 Long term (current) use of aspirin; Z79.899 Other long term (current) drug therapy
CPT/HCPCS: 93312; 36415; 85610; J2003; J2250; J2704

== ENCOUNTER → 2024-07-13 08:59 | Outpatient (BNV) | payer OTHER, SELFPAY | PROVIDERS: PCP Internal Medicine Geriatric Medicine; Visit Provider Internal Medicine Cardiovascular Disease | DX: I36.1 Nonrheumatic tricuspid (valve) insufficiency (principal); Z95.2 Presence of prosthetic heart valve; I70.0 Atherosclerosis of aorta | CPT/HCPCS: 76376; 93312 ==

== ENCOUNTER 2024-08-01 14:38 | Outpatient (AMB) | payer OTHER, SELFPAY ==
[2024-08-01 14:56] VITALS: BP 124/78; PULSE 85; BMI 29.8
--- NOTE | 2024-08-01 14:56 | A.OFFVIS_ITS ---
Vital Signs 08/01/24 14:56 Height 6 ft Weight 220 lb BMI 29.8 BP 124/78 Blood Pressure Location Lt brachial Position Sitting Pulse 85 Pulse Source Monitor Intake Visit Reasons: Follow up post KALIA Allergies No Known Allergies Allergy (Verified 07/19/24 12:14) Medication List - Last Reconciled 08/01/24 by Guillermo Barragan NP amoxicillin 2,000 mg PO aspirin 81 mg PO DAILY [CENTRUM PLUS MVI OVER 50 PO] [HERBAL LIFE SHAKE PO] [HERBAL LIFE TEA PO] levothyroxine 137 mcg PO QAM simvastatin 10 mg PO BEDTIME warfarin 12 mg See Protocol PO DAILY warfarin 10 mg See Protocol PO DAILY HPI Comments Details: This is a 53-year-old male patient with a past medical history of mechanical mitral valve placed at 17 years old, rheumatic heart disease, and chronic anticoagulation on Eliquis and warfarin. The patient had an echo in April that revealed an abnormal function of the mechanical mitral valve which led to the decision to perform KALIA and is now following up for this. The patient reports feeling well overall and denies any cardiac symptoms including exertional chest pain, shortness of breath, palpitations, dizziness, fatigue, orthopnea, PND, leg edema, presyncope, or syncope. The patient denies any signs of bleeding. He reports compliance with his medications. [facility] Medical History Anticoagulation goal of INR 2.5 to 3.5 CVA (cerebral vascular accident) Rheumatic heart disease Surgical History History of appendectomy H/O mitral valve replacement with mechanical valve Family History Father CVD (cardiovascular disease) Mother HTN (hypertension) Asthma Social History Household Members Other:: mother and mother in law Are you a primary career center director to a significant other at home: No Do you presently have visiting nurse or other home services: No Alcohol intake: never Patient Tobacco Use Status: Former Tobacco user Tobacco use type: Cigarette Years Smoked: 17 +/- Current occupational status: employed 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, 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 Review of Systems Const Denies weakness ENT Denies dizziness Card Denies chest pain, Denies chest pain with activity, Denies syncope, Denies rapid heart rate, Denies pedal edema, Denies edema, Denies leg edema, Denies lightheadedness, Denies palpitations, Denies dyspnea, Denies dyspnea on exertion and Denies orthopnea Resp Denies cough, Denies dyspnea and Denies dyspnea on exertion GI Denies hematochezia and Denies change in stool character Musc Denies abnormal gait, Denies muscle cramps, Denies muscle weakness, Denies numbness, Denies radiating pain into limb and Denies tingling Neuro Denies abnormal gait, Denies dizziness, Denies syncope, Denies numbness, Denies tingling and Denies weakness Endo Denies palpitations Physical Exam Vital Signs: Last Vital Signs Pulse 85 08/01/24 14:56 BP 124/78 08/01/24 14:56 BMI result Body Mass Index 29.8 Const General: cooperative, healthy appearing, comfortable and no acute distress Orientation/consciousness: patient oriented x3 HEENT Head: Yes normal to inspection Neck Neck: Yes normal visual inspection, Yes trachea midline and Yes supple Chest Chest palpation & inspection: normal inspection of the chest Resp Effort & Inspection: normal respiratory effort Auscultation: clear to auscultation bilaterally, no crackles, no rales, no rhonchi and no wheezes Cardio Other: Wright opening and closing of mechanical valve Jugular venous distension: no JVD Palpation: normal PMI Rate: regular rate Rhythm: regular rhythm Heart sounds: S1 normal heart sound present, S2 normal heart sound present, Clicking heart sound present, no gallops, no murmurs and no rubs Peripheral pulses: Peripheral pulses 2+ throughout GI Inspection: Yes normal to inspection Palpation (GI): Soft to palpation Auscultation: normal bowel sounds Skin General skin exam: no rashes or lesions noted Neuro General: patient oriented x3 Extrem General: Yes normal to inspection, No no pedal edema and No calf tenderness Psych Appearance: grossly normal Mental Status: mental status grossly normal Speech and movement: Normal speech and movement present Office Procedures EKG Details: EKG today showed underlying normal sinus rhythm, rate 85 beats per minute, inferior infarct that is unchanged from past EKGs, [place] [id number], Complete Assessment & Plan Assessment & Plan (1) H/O mitral valve replacement with mechanical valve: Comment: age 17 Code(s): Z95.2 - Presence of prosthetic heart valve Category: Surgical Plan: 05/02/2024-echo showed abnormal function of mechanical mitral valve with mean gradient of 12-14 mmHg. This led him to getting a KALIA. 07/13/2024- KALIA showed a normal functioning mechanical prosthetic mitral valve, normal EF 60-65%, and mild atherosclerotic changes in the aorta. Patient has no reported symptoms. On auscultation, patient has a crisp opening and closing clicks of the mechanical valve. Continue aspirin and warfarin therapy, with target INR between 2.5 and 3.5. Followed by Coumadin clinic. We will repeat echo in 1 year. (2) Thoracic aortic atherosclerosis: Code(s): I70.0 - Atherosclerosis of aorta Category: Medical Plan: Unchanged mild atherosclerotic changes of the aorta. Most recent LDL 132, not at goal. Patient unsure if this was fasting or not. Continue statin therapy with LDL goal less than 70. We will repeat labs and may need to titrate up on the statin therapy. Blood pressure is at goal, ideally less than 130/80. (3) Current use of anticoagulant therapy: Code(s): Z79.01 - MCC (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 Plan: As above Advised heart healthy diet, regular exercise, and aggressive management of the vascular risk factors. Follow-up in 1 year, sooner if needed. In the interim, patient will call us with any questions or change in symptoms. This note was generated using voice recognition software. While every effort has been made to ensure accuracy and proper fretted instrument maker hand, there may be occasional errors that could affect the content or meaning of the described symptoms. Orders: Orders CA echo transthoracic complete 1 Year Z95.2 - Presence of prosthetic heart valve AMB EKG-In Office Today Z95.2 - Presence of prosthetic heart valve Lipid Panel Today I70.0 - Atherosclerosis of aorta Coding Level of Care Code Est Pt Level 4 (58025) Diagnoses H/O mitral valve replacement with mechanical valve Z95.2 Thoracic aortic atherosclerosis I70.0 Current use of anticoagulant therapy Z79.01 CPT Codes EKG - CPT: 99921-[id number], Complete ([id number]) Time Spent (min) 31 Comment Time spent in reviewing the chart, test results, assessment, counseling and documentation.
--- OUTSIDE RECORDS SUMMARY | 2024-08-01 17:40 | XMS_ITS | Clinical Summary ---
Author Organization [facility] Address [address] [place] [address] Care Team Providers Care Combustion Analyst Name Role Phone Unavailable Primary Care Provider Unavailabl e Source Comments PLEASE NOTE, if this patient is a minor, it may be UNLAWFUL to discuss sensitive information that is contained in these records (such as FAMILY PLANNING, MENTAL HEALTH or SUBSTANCE ABUSE) with the minor patient's parent or other person without the patient's specific authorization.[facility] Immunizations Name Administration Dates Next Due Moderna COVID-19 Vaccine, re d cap blue label, 12+ Primary Series 10/20/2020,09/22/2020 Social History Tobacco Use Types Packs/Day Years Used Date Smoking Tobacco: Never Assessed Social Connections Answer Date Recorded Connectedness 0 02/15/2024 Financial Resource Strain Answer Date R ecorded Financial Resource Strain 0 2023 Stress Answer Date Recorded Stress 0 10/29/2023 Physical Activity Answer Date Recorded Physical Activity 0 10/29/2023 Food Insecurity Answer Date Recorded Food 0 02/23/2024 Transportation Needs Answer Date Record ed Transportation 0 10/29/2023 Housing Stability Answer Date Recorded Housing 0 10/29/2023 Safety and Environment Answer Date Trung rded Safety 0 10/29/2023 Utilities Answer Date Recorded Utilities 0 10/29/2023 Employment Answer Date Recorded Stress 0 02/15/2024 Sex and Gender Information Value Date Recorded Sex Assigned at Not on file Legal Sex Male 11:36 AM PDT Gender Identity Not on file Sexual Orientation Not on file Plan of Treatment Health Maintenance Due Date Last Done Comments Diabetes Screening 1972 Hepatitis C Screening 1972 Lipid Screening 1972 Tobacco Screening 1972 HIV Screening 12/27/1987 Hypertension Screening (#1) 1990 Imm-DTaP/Tdap/Td (1 - Tdap) 12/27/1991 Imm-Hepatitis B (1 of 3 - 19 + 3-dose series) 12/27/1991 CT Colonography 2017 Colonoscopy 2017 Colorectal Cancer Screening 2017 FIT/gFOBT 2017 Fecal DNA 2017 Flexible Sigmoidoscopy 2017 Imm-Zoster, Recombinant (1 of 2) 2022 Sag-KKPTC-84 ( season) 2024 021, 09/22/2020 Imm-Influenza (#1) 2024 02/13/2016 Alcohol and Drug Screen 05/30/2024 Depression Annual Screen 05/30/2024 [facility] MEDICAID [facility] INSURANCE Member Subscriber Plan / Payer (Ef fective 2020-Present) Name:Levy Ching Relation to Subscriber:Self Name:Levy Ching Payer ID:[id number] Type:Indemnity Address: [address] [place] [id number]
== END 2024-08-01 15:31 | disposition home or self-care (01) ==
PROVIDERS: PCP Internal Medicine Geriatric Medicine
DX: Z95.2 Presence of prosthetic heart valve (principal); I70.0 Atherosclerosis of aorta; Z79.01 Long term (current) use of anticoagulants
CPT/HCPCS: 93010; 99214

== ENCOUNTER → 2024-08-01 14:38 | Outpatient (BNVA) | payer OTHER, SELFPAY | PROVIDERS: PCP Internal Medicine Geriatric Medicine | DX: Z95.2 Presence of prosthetic heart valve (principal); I70.0 Atherosclerosis of aorta; Z79.01 Long term (current) use of anticoagulants; Z79.82 Long term (current) use of aspirin | CPT/HCPCS: 93005 ==

== ENCOUNTER → 2024-09-26 08:47 | Outpatient (BNVA) | payer OTHER, SELFPAY | PROVIDERS: PCP Internal Medicine Geriatric Medicine; Visit Provider Internal Medicine Medical Oncology ==

== ENCOUNTER 2024-10-10 08:55 | Outpatient (REF) | payer OTHER, SELFPAY ==
--- OUTSIDE RECORDS SUMMARY | 2024-10-10 09:21 | XMS_ITS | Encounter Summary ---
Author Organization [employer] Address [address] [facility] [address] [place] [address] Care Team Providers Care Insulation Applicator Name Role Phone Name, Jordy TAVARES Primary Care Provider [phone] Reason for Visit * Reason Onset Date Comments Created in error 12/14/2023 Encounter Details Date Type Department Care Team ([facility] Contact Info) Description 12/14/2023 Telephone [facility] [address] [place] [address] Name, MD Jordy [address] [place] [address] Created in error Social History Tobacco Use Types Packs/Day Years Used Date Smoking Tobacco: Never Smokeless Tobacco: Never Alcohol Use Standard Drinks/Week Comments Never 0 (1 standard drink = 0.6 oz pur e alcohol) Depression Answer Date Recorded Patient Health Questionnaire-9 Score 0 03/25/2023 Patient Health Questionnaire-9 Score 0 03/25/2023 Last PHQ-9: Questionnaire Data Not on file 1 Housing Stability Answer Date Recorded What is your housing situation today? I have libia booker 03/17/[address] you li ve. Do you have problems with any of the following? None of the above 03/17/2023 Food Insecurity Answer Date Recorded Within the past 12 months, y ou worried that your food would run out before you got money to buy more: Never True 03/17/2023 Within the past 12 months,th e food you bought just didn't last and you didn't have enough money to get more: Never True Transportation Answer Date Recorded In the past 12 months, has l ack of transportation kept you from medical appts, meetings, work or from getting things needed for daily living? No 03/17/2023 Utilities Answer Date Recorded In the past 12 months, has t he electric, gas, oil or water company threatened to shut off services in your home? No 03/17/2023 Depression Answer Date Recorded Patient Health Questionnaire-2 Score 0 03/25/2023 Sex and Gender Information Value Date Recorded Sex Assigned at Male 03/29/2022 10:17 AM EDT Legal Sex Male 10:17 AM EDT Gender Identity Male 03/29/2022 10:17 AM EDT Sexual Orientation Straight 03/29/2022 10 :17 AM EDT documented as of this encounter Plan of Treatment Upcoming Encounters Date Type Department Care Team (Late st Contact Info) Description 01/23/2025 3:45 PM EDT Office Visit [facility] [address] [place] [phone] NameJordy MD [address] [place] [phone] documented as of this encounter Visit Diagnoses Not on filedocumented in this encounter Additional Health Concerns Assessment Noted Time PHQ-9 Depression Total Score: 0 03/25/20 23 10:50 AM EDT documented as of this encounter Care Teams Insulation Applicator Relationship Specialty Start Date End Date NameJordy MD [address] [place] [id number] PCP - General Family Medicine 12/28/17 documented as of this encounter
--- OUTSIDE RECORDS SUMMARY | 2024-10-10 09:21 | XMS_ITS | Encounter Summary ---
Author Organization [employer] Address [address] [facility] [address] [place] [address] Care Team Providers Care Completions Manager Name Role Phone Name, Jordy TAVARES Primary Care Provider [phone] Encounter Details Date Type Department Care Team ([facility] st Contact Info) Description 06/09/2023 Telephone [facility] [address] [place], [place] [phone] Name, MD Jordy [address] [place] [address] Social History Tobacco Use Types Packs/Day Years [...] AM EDT documented as of this encounter Miscellaneous Notes * Telephone Encounter - Rosaura Durán LPN - 06/09/2023 2:03 PM EST Critical result line [place] now [place] [facility] [place] today is 1.9 (Range 2.5-3.5) May have missed dose and or had too many greens to eat. Normal Warfarin dose is 12mg Tuesday and 10mg all others. Today Warfarin 14mg followed by 10mg Tuesday Sat. & Sun. Recheck Tuesday. Patient also takes baby ASA daily. Please update PCP and if Lovenox indicated please call Nan to follow. documented in this encounter Plan of Treatment Upcoming Encounters Date Type Department Care Team (Late st Contact Info) Description 01/23/2025 3:45 PM EDT Office Visit [facility] [address] [place] [phone] Name, MD Jordy [address] [place] [address] documented as of this encounter Visit Diagnoses Not on filedocumented in this encounter Additional Health Concerns Assessment Noted Time PHQ-9 Depression Total Score: 0 03/25/20 23 10:50 AM EDT documented as of this encounter Care Teams Completions Manager Relationship Specialty Start Date End Date NameJordy MD [address] [place] [phone] PCP - General Family Medicine 12/28/17 documented as of this encounter
--- OUTSIDE RECORDS SUMMARY | 2024-10-10 09:21 | XMS_ITS | Clinical Summary ---
Author Organization [employer] Address [address] [place] [address] [address] [place] [address] Care Team Providers Care Claim Benefit Specialist Name Role Phone Name, Jordy TAVARES Primary Care Provider [phone] Allergies No known active allergies Medications aspirin 81 MG EC tablet Take 81 mg by mouth in the morning. Active warfarin (Coumadin) 5 MG tabletIndicatio ns:History of mitral valve replacement TAKE 2 TABLETS ORALLY 7 DAYS WEEK PER THE [facility] RECOMMENDATIONS 100 tablet 4 12/13/19 24 Active warfarin (Coumadin) 1 MG tabletIndicatio ns:History of mitral valve replacement TAKE 1 TABLET BY MOUTH WITH THE 5 MG TABLET TO MAKE 7MG ON AND AND 10MG NEXT WEEK 90 tablet 3 01/18/20 24 Active levothyroxine (Synthroid, Levoxyl) 137 MCG tablet TAKE 1 TABLET BY MOUTH BEFORE BREAKFAST 90 tablet 3 03/28/20 24 Active simvastatin (Zocor) 10 MG tablet TAKE 1 TABLET BY MOUTH EVERY EVENING 90 tablet 3 06/21/19 25 Active amoxicillin (Amoxil) 500 MG tablet TAKE 4 TABLETS BY MOUTH 40 MINS PRIOR TO PROCEDURE Active Active Problems Problem Noted Date Diagnosed Date Abnormal echocardiogram 08/01/2024 Anticoagulation goal of INR 2.5 to 3.5 Bilateral primary osteoarthritis of knee 025 Current use of anticoagulant therapy 08/01/2024 Lumbosacral radiculitis 08/01/2024 Rheumatic heart disease 08/01/2024 Thoracic aortic atherosclerosis 08/01/2024 COVID-19 01/14/2023 Assessment & Plan (01/14/2023 5:06 AM EDT): 1 day of Sx, pos for Covid-19 today - rapid test. VS stable w no concerning physical exam -Start Paxlovid -last cr wnl 2019 and LFts wnl 2021 (pts risk factors: CVA, 52 y of age), check Rx interactions and advise pt to hold on Simvastatin from now until 3-5 d after completing Paxlovid. Last dose >12 h ago. Also needs to monitor INR closely for possible interaction w Warfarin. Pt has INR machine at home and will check daily INR at home and will call his [facility] if not at goal (2.5-3.5). -Supportive measurements advised. -Isolation for 5 d, hand hygiene, discussed w contacts for testing. -Alarm signs and Sx discussed w pt. -advised to get Bivalent booster in 2 to 3 weeks once feeling better Benign prostatic hyperplasia 06/01/2022 Skin lesion 06/01/2022 Primary osteoarthritis of left knee 06/01/2022 CVA (cerebral vascular accident) 01/26/2018 Chronic low back pain 01/26/2018 Hypothyroidism 01/26/2018 Obstructive sleep apnea syndrome 01/26/2018 Memory impairment 01/26/2018 H/O mitral valve replacement with mechanical cirilo ve 05/16/2015 Overview (08/01/2024): age 17 Encounters Date Type Department Care Team Description 10/04/2024 Telephone [facility] [address] [place] [phone] Daniela Ma MA december recalls 08/01/2024 2:00 PM EST Office Visit [facility] [address] [place] [phone] Name, MD Jordy Elevated blood pressure reading (Primary Dx); H/O mitral valve replacement with mechanical valve; Anticoagulation goal of INR 2.5 to 3.5; Vaccine refused by patient; Hypothyroidism, unspecified type 08/01/2024 Travel 07/13/2024 Orders Only GENERIC EXTERNAL DATA DEPARTMENT Provider, Generic External Data from Last 3 Months Immunizations Immunization Administration Dates Next Due Influenza injectable quadriv alent IIV4 with preservative 02/13/2016 Influenza, Split (incl. purified surface antigen ) 02/16/2016 Tdap 07/25/2023 Family History Medical History Relation Name Comments Diabetes Daughter Lymphoma Father Relation Name Status Comments Daughter Alive Father Social History Tobacco Use Types Packs/Day Years Used Date Smoking Tobacco: Former Cigarettes Smokeless Tobacco: Never Tobacco Cessation:Counseling Given: Not Answered Alcohol Use Standard Drinks/Week Comments Never 0 (1 standard drink = 0.6 oz pur e alcohol) Depression Answer Date Recorded Patient Health Questionnaire-9 Score 0 08/01/2024 Patient Health Questionnaire-9 Score 0 08/01/2024 Last PHQ-9: Questionnaire Data Not on file 0 08/01/2024 Housing Stability Answer Date Recorded What is your housing situation today? I have libia booker 03/19/[address] you li ve. Do you have problems with any of the following? None of the above 03/19/2024 Food Insecurity Answer Date Recorded Within the past 12 months, y ou worried that your food would run out before you got money to buy more: Never True 03/19/2024 Within the past 12 months,th e food you bought just didn't last and you didn't have enough money to get more: Never True Transportation Answer Date Recorded In the past 12 months, has l ack of transportation kept you from medical appts, meetings, work or from getting things needed for daily living? No 03/19/2024 Utilities Answer Date Recorded In the past 12 months, has t he electric, gas, oil or water company threatened to shut off services in your home? No 03/19/2024 Depression Answer Date Recorded Patient Health Questionnaire-2 Score 0 08/01/2024 Internet Access Answer Date Recorded Internet Access Q1 Yes 03/19/2024 Internet Access Q2 Not on file 03/19/2024 Sex and Gender Information Value Date Recorded Sex Assigned at Male 03/29/2022 10:17 AM EDT Legal Sex Male 10:17 AM EDT Gender Identity Male 03/29/2022 10:17 AM EDT Sexual Orientation Straight 03/29/2022 10 :17 AM EDT Last Filed Vital Signs Vital Sign Reading Time Taken Comments Blood Pressure 123/79 08/01/2024 2:13 PM EST Pulse 95 08/01/2024 2:03 PM EST Temperature 36.7 ??C (98 ??F) 08/01/2024 2:03 PM EST Respiratory Rate 21 08/01/2024 2:03 PM EST Oxygen Saturation 97% 08/01/2024 2:03 PM EST Inhaled Oxygen Concentration - - Weight 103 kg (227 lb 12.8 oz) 08/01/2024 2:03 P M EST Height 182.9 cm (6') 08/01/2024 2:03 PM EST Body Mass Index 30.9 08/01/2024 2:03 PM EST Plan of Treatment Upcoming Encounters Date Type Department Care Team (Late st Contact Info) Description 01/23/2025 3:45 PM EDT Office Visit [facility] [address] [place] [address] Name, MD Jordy [address] [place] [address] Health Maintenance Due Date Last Done Comments CT Colonography 1972 Colonoscopy 1972 Colorectal Cancer Screening 1972 FIT DNA/Cologuard 1972 FIT 1972 FOBT 1972 Sigmoidoscopy 1972 Family Planning (PISQ) 12/27/1987 Hepatitis B Vaccines (1 of 3 - 19+ 3-dose series) 12/27/1991 Pneumococcal Vaccine: 50+ Years (1 of 1 - PCV) 2022 Zoster Vaccines (1 of 2) 2022 COVID-19 Vaccine (3 - 2023- season) 2024 10/20/2020, 09/22/2020 Influenza Vaccine (#1) 2024 02/16/2016, 2015 Alcohol/Substance Use Screening 03/19/2025 03/19/2024 SDOH Screening 03/19/2025 03/19/2024 Depression Screening 08/01/2025 08/01/2024, 08/02/19 25 Tobacco Screening 08/01/2025 08/01/2024 Lipid Panel 04/07/2029 04/07/2024, 02/28, 11/10/2021, Additional history exists DTaP/Tdap/Td Vaccines (2 - Td or Tdap) 07/25/2033 07/25/2023 RSV Patients and Patients Aged 60 years or older (1 - 1-dose 75+ series) 12/27/2047 HIV Screening Completed 04/07/2024 Hepatitis C Screening Completed 04/07/2024 HIB Vaccines Aged Out No longer eligi ble based on patient's age to complete this topic HPV Vaccines Aged Out No longer eligi ble based on patient's age to complete this topic Hepatitis A Vaccines Aged Out No long er eligible based on patient's age to complete this topic IPV Vaccines Aged Out No longer eligi ble based on patient's age to complete this topic Meningococcal Vaccine Aged Out No arvin raghav eligible based on patient's age to complete this topic RSV under 20 months Aged Out No longe r eligible based on patient's age to complete this topic Rotavirus Vaccines Aged Out No longer eligible based on patient's age to complete this topic Procedures Procedure Name Priority Date/Time Associated Diagnosis Comments PROTHROMBIN TIME-INR Routine 07/13/2024 8:06 AM EST HEPATITIS C AB W/REFL TO HCV RNA, QN, PCR Routine 04/07/2024 10:03 AM EST Need for hepatitis C screening test HIV 1/2 ANTIGEN/ANTIBODY, FOURTH GENERATION W/RFL Routine 04/07/2024 10:03 AM EST Screening for HIV (human immunodeficiency virus) LIPID PANEL, STANDARD Routine 04/07/2024 10:03 AM EST PE (physical exam), routine from Last 3 Months or Most Recently Relevant to Health Maintenance Results * (ABNORMAL) Prothrombin Time-INR (07/13/2024 8:06 AM EST) Prothrombin Time 39.1(H) 10.9 - 12.4 SEC [facility] INTERNATIONAL NORM RATIO 3.3(H) 0.9 - 1.1 [facility] Comment:INTERNATIONAL NORMAL IZED RATIO (INR) REFERENCE RANGES Reference RangeFor patients not on anticoagulant therapy: 0.9 - 1.1INR ranges for oral anticoagulanttherapy:For prevention and treatment of venous thrombosis and pulmonary embolism: 2.0 - 3.0For acute myocardial infarction with aspirin therapy: 2.0 - 3.0For acute myocardial infarction without aspirin therapy: 3.0 - 4.0For patients with mechanical prosthetic heart valves: 2.5 - 3.5 07/13/2024 8:06 AM EST 07/13/2024 8:06 AM EST us Generic External Data Provider LAB BLOOD ORDERAB LES Final Result Performing Organization Address [facility]/ZIP Co de Phone Number [facility] [address] [place] [address] [phone] * Hepatitis C Antibody with Reflex to HCV, RNA, Quantitative, Real-Time PCR (04/07/2024 10:03 AM EST) Hepatitis C Antibody Nonreactive Nonreactive [facility] Comment:Antibodies to HCV no t detected; does not exclude early acuteHCV infection. Blood Venous blood specimen / Unknown 04/07/2024 10:03 AM EST 04/07/2024 10:03 AM EST Jordy Osorio MD LAB BLOOD ORDERABLES Final Resul t Performing Organization Address [facility] Co de Phone Number [facility] [address] [place] [phone] * HIV-1/2 Antigen and Antibodies, Fourth Generation, with Reflexes (04/07/2024 10:03 AM EST) HIV AB/AG Nonreactive Nonreactive [facility] Comment:HIV-1 p24 Ag and/or HIV-1/HIV-2 Ab not detected.A test result that is nonreactive does not exclude thepossibility of exposure to or infection with HIV-1 and/orHIV-2. Nonreactive results in this assay for individualswith prior exposure to HIV-1 and/or HIV-2 may be due toantigen and antibody levels that are below the limit ofdetection of this assay.The [employer] HIV Ag/Ab Combo assay result andsupplemental assay results should be interpreted inconjunction with the patient's clinical presentation,history and other laboratory results. If the results areinconsistent with clinical evidence, additional testing issuggested to confirm the result. Blood Venous blood specimen / Unknown 04/07/2024 10:03 AM EST 04/07/2024 10:03 AM EST us Jordy Osorio MD LAB BLOOD ORDERABLES Final Resul t Performing Organization Address [facility] de Phone Number [facility] [address] [place] [phone] * (ABNORMAL) Lipid Panel, Standard (04/07/2024 10:03 AM EST) Triglycerides 116 <150 mg/dL [facility] Comment:Desirable Triglyceri de: less than 150 mg/dLBorderline High Triglyceride 150-199 mg/dLHigh Triglyceride: 200-499 mg/dLVery High Triglyceride: greater than or equal to 5OO mg/dL Cholesterol 208(H) <200 mg/dL [facility] Comment:Desirable Cholestero l: less than 200 mg/dLBorderline High Cholesterol: 200-239 mg/dLHigh Cholesterol: greater than 239 mg/dL LDL Cholesterol Calculated 132(H) <100 mg/dL [facility] Comment:Desirable LDL: less than 100 mg/dLNear Optimal/Above Optimal LDL: 110- 129 mg/dLBorderline High LDL: 130-159 mg/dLHigh LDL: 160-189 mg/dLVery High LDL: greater than or equal to 190 mg/dL HDL Cholesterol 53 >40 mg/dL [facility] Comment:Desirable HDL: great er than 40 mg/dL Note: This HDL assay may give artificially low results in patients with liver disease. Blood Venous blood specimen / Unknown 04/07/2024 10:03 AM EST 04/07/2024 10:03 AM EST us Jordy Osorio MD LAB BLOOD ORDERABLES Final Resul t Performing Organization Address [facility] Co de Phone Number [facility] [address] [place] [phone] from Last 3 Months or Most Recently Relevant to Health Maintenance [place] [address] [place] [address] , [address] [place] [phone] Care Teams Claim Benefit Specialist Relationship Specialty Start Date End Date Name, MD Jordy [address] [place] [phone] PCP - General Family Medicine 12/28/17
--- OUTSIDE RECORDS SUMMARY | 2024-10-10 09:21 | XMS_ITS | Clinical Summary ---
Author Organization [facility] Address [address] [place] [address] Care Team Providers Care Marshmallow Runner Name Role Phone Unavailable Primary Care Provider Unavailabl e Source Comments PLEASE NOTE, if this patient is a minor, it may be UNLAWFUL to discuss sensitive information that is contained in these records (such as FAMILY PLANNING, MENTAL HEALTH or SUBSTANCE ABUSE) with the minor patient's parent or other person without the patient's specific authorization.[facility] Immunizations Immunization Administration Dates Next Due Moderna COVID-19 Vaccine, [...] Health Maintenance Due Date Last Done Comments Anxiety Screening 1972 Diabetes Screening 1972 Hepatitis C Screening 1972 Lipid Screening 1972 Tobacco Screening 1972 HIV Screening 12/27/1987 Hypertension Screening (#1) 1990 Imm-DTaP/Tdap/Td (1 - Tdap) 12/27/1991 Imm-Hepatitis B (1 of 3 - 19 + 3-dose series) 12/27/1991 CT Colonography 2017 Colonoscopy 2017 Colorectal Cancer Screening 2017 FIT/gFOBT 2017 Fecal DNA 2017 Flexible Sigmoidoscopy 2017 Imm-Zoster, Recombinant (1 of 2) 2022 Dem-[id number] ( season) 2024 021, 09/22/2020 Imm-Influenza (#1) 2024 02/13/2016 Alcohol and Drug Screen 05/30/2024 Depression Annual Screen 05/30/2024 Insurance [place] MEDICAID [facility] HEALTH INSURANCE Member Subscriber Plan / Payer (Ef fective 2020-Present) Name:Levy Ching Relation to Subscriber:Self Name:Levy Ching Payer ID:[id number] Type:Indemnity Address: [address] [place] [phone]
[2024-10-10 11:24] LABS: Cholesterol 182 mg/dL (<200); HDL Cholesterol 47 mg/dL (>40); LDL Cholesterol Calculated 103 mg/dL (<100); Triglycerides 163 mg/dL (<150)
== END 2024-10-10 08:56 | disposition home or self-care (01) ==
LOC: HO.HHCL 08:55
DX: I70.0 Atherosclerosis of aorta (principal)
CPT/HCPCS: 36415; 80061

== ENCOUNTER → 2024-10-25 10:03 | Outpatient (BNVA) | payer OTHER, SELFPAY | PROVIDERS: PCP Internal Medicine Geriatric Medicine; Visit Provider Internal Medicine Medical Oncology ==

== ENCOUNTER → 2024-11-12 08:58 | Outpatient (BNVA) | payer OTHER, SELFPAY | PROVIDERS: PCP Internal Medicine Geriatric Medicine; Visit Provider Internal Medicine Medical Oncology ==

== ENCOUNTER 2025-05-01 14:51 | Outpatient (AMB) | payer SELFPAY ==
--- NOTE | 2025-05-01 14:59 | MHC.OFFVISCO ---
Intake Intake Visit Reasons: Anticoagulation Allergies No Known Allergies Allergy (Verified 05/01/25 14:57) Medication List - Last Reconciled 05/01/25 by Xiomara Munson RN amoxicillin 2,000 mg PO aspirin 81 mg PO DAILY [CENTRUM PLUS MVI OVER 50 PO] [HERBAL LIFE SHAKE PO] [HERBAL LIFE TEA PO] levothyroxine 137 mcg PO QAM simvastatin 20 mg PO BEDTIME warfarin 12 mg See Protocol PO DAILY warfarin 10 mg See Protocol PO DAILY Nursing Note pt here for meter to meter correlation INR?? 3.4- in therapeutic range 2.5-3.5, pt meter poc inr was 3.5 Keep same dose 10mg x 6, 12mg x 1 No changes indicated per patient assessment questionnaire per pt No changes in health, diet, supplements or meds No signs and symptoms of bleeding or bruising or clotting Retest 2 weeks pt to acs for meter to meter correlation. demonstrates good tech, one strip used, pt reports no problems with home meter testing. pt med list reviewed. does take infreq prn pain med otherwise no changes risk scores done. pt states valve leakage and followed closely with cardiology- states may need heart transplant in the future. pt meter date and time adjusted and up to date, pt meter memory checked and several unreported poc inr's noted. pt states tests inr more frequently when ill- enc to follow acs testing dates and call acs with any need for more frequent testing. Anti-Coag Initial Assessment Social Hx Patient Tobacco Use Status: Former Tobacco user Tobacco use type: Cigarette alcohol intake: never Questionnaires HAS-BLED Does the patient had uncontrolled Hypertension?: No Does the patient have renal disease?: No Does the patient have liver disease?: No Does the patient have a history of stroke?: Yes Has the patient had major bleeding or predisposition to bleeding?: No Does the patient have labile INRs?: No Is the patient over 65 years of age?: No Is the patient on medications that gives them a predisposition to bleeding?: Yes Does the patient use alcohol?: No HAS-BLED Score: 2 CHADSVASC Age: <65 Gender: Male Does the patient have a history of CHF?: No Does the patient have a history of Hypertension?: No Does the patient have a history of Stroke/TIA/Thromboembolism?: Yes Does the patient have a history of Vascular Disease (prior MA, PAD or aortic plaque)?: Yes Does the patient have a history of Diabetes?: No CHADS VACS Score: 3 Waqas Prediction Score Rsk VTE Active Cancer: No Previous VTE, excluding superficial vein thrombosis: Yes Reduced mobility: No Already known Thrombophilic Condition: No With-in last month Trauma and/or Surgery: No Elderly 70 year or older: No Heart and/or Respiratory Failure: No Acute Myocardial infarction and/or Ischemic Stroke: Yes Acute Infection and/or Rheumatologic Disorder: Yes Obesity (BMI 30 or greater): No Ongoing Hormonal Treatment: No Score: 5 Waqas Score less than 4; Low Risk of VTE Waqas Score 4 or greater; High Risk of VTE Coding Level of Care Code Est Patient Level 1 Diagnoses Current use of anticoagulant therapy Z79.01 Assessment & Plan Assessment & Plan (1) Current use of anticoagulant therapy: Code(s): Z79.01 - FDC (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
[2025-05-01 15:12] LABS: Prothrombin Time Whole Bld POC 41.2 sec (11.1-13.5); ~PT, ~INR - Anti Coag Clinic 3.4 (0.9-1.1)
--- OUTSIDE RECORDS SUMMARY | 2025-05-01 17:44 | XMS_ITS | Encounter Summary ---
Author Organization [employer] Address [address] [facility] 7 [place] [address] Care Team Providers Care Emergency Department Manager Name Role Phone Name, Jordy TAVARES Primary Care Provider [phone] Reason for Visit * Reason Onset Date Comments Created in error 12/14/2023 Encounter Details Date Type Department Care Team ([facility] Contact Info) Description 12/14/2023 Telephone [facility] [address] [place] [address] Name, MD Jordy [address] [place] [address] Created in error Social History Tobacco Use [...] as of this encounter Plan of Treatment Not on file documented as of this encounter Visit Diagnoses Not on filedocumented in this encounter Additional Health Concerns Assessment Noted Time PHQ-9 Depression Total Score: 0 03/25/20 23 10:50 AM EDT documented as of this encounter Care Teams Emergency Department Manager Relationship Specialty Start Date End Date Name, MD Jordy [address] [place] [phone] PCP - General Family Medicine 12/28/17 documented as of this encounter
--- OUTSIDE RECORDS SUMMARY | 2025-05-01 17:45 | XMS_ITS | Clinical Summary ---
Author Organization [employer] Address [address] [place] [address] [address] [place] [address] Care Team Providers Care Tanning Wheel Filler Name Role Phone Name, Jordy TAVARES Primary Care Provider [phone] Allergies No known active allergies Medications aspirin 81 MG EC tablet Take 81 mg by mouth in the morning. Active levothyroxine (Synthroid, Levoxyl) 137 MCG tablet TAKE 1 TABLET BY MOUTH BEFORE BREAKFAST 90 tablet 3 03/28/20 24 Active simvastatin (Zocor) 10 MG tablet TAKE 1 TABLET BY MOUTH EVERY EVENING 90 tablet 3 06/21/19 25 Active amoxicillin (Amoxil) 500 MG tablet TAKE 4 TABLETS BY MOUTH 40 MINS PRIOR TO PROCEDURE Active warfarin (Coumadin) 5 MG tabletIndicatio ns:History of mitral valve replacement TAKE 2 TABLETS ORALLY 7 DAYS A WEEK PER THE COUMADIN CLINIC RECOMMENDATIONS 100 tablet 4 10/24/19 25 Active warfarin (Coumadin) 1 MG tabletIndicatio ns:History of mitral valve replacement TAKE 1 TABLET BY MOUTH WITH THE 5 MG TABLET TO MAKE 7MG ON AND AND 10MG NEXT WEEK 90 tablet 3 01/01/20 25 Active Active Problems Problem Noted Date Diagnosed [...] left knee 06/01/2022 CVA (cerebral vascular accident) (CMS/HCC) 01/26 Chronic low back pain 01/26/2018 Hypothyroidism 01/26/2018 Obstructive sleep apnea syndrome 01/26/2018 Memory impairment 01/26/2018 H/O mitral valve replacement with mechanical cirilo ve 05/16/2015 Overview (08/01/2024): age 17 Encounters Date Type Department Care Team Description 02/20/2025 Telephone [facility] [address] [place] [phone] Name, MD Jordy CRITICAL LAB from Last 3 Months Immunizations Immunization Administration [...] 95 08/01/2024 2:03 PM EST Temperature 36.7 C (98 F) 08/01/2024 2:03 PM EST Respiratory Rate 21 08/01/2024 2:03 PM EST Oxygen Saturation 97% 08/01/2024 2:03 PM EST Inhaled Oxygen Concentration - - Weight 103 kg (227 lb 12.8 oz) 08/01/2024 2:03 P M EST Height 182.9 cm (6') 08/01/2024 2:03 PM EST Body Mass Index 30.9 08/01/2024 2:03 PM EST Plan of Treatment Health Maintenance Due Date Last Done Comments CT Colonography 1972 Colonoscopy 1972 Colorectal Cancer Screening 1972 FIT DNA/Cologuard 1972 FIT 1972 FOBT 1972 Sigmoidoscopy 1972 Disability Screening 1972 Alcohol/Substance Use Screening 1984 Family Planning (PISQ) 12/27/1987 Hepatitis B Vaccines (1 of 3 - 19+ 3-dose series) 12/27/1991 Pneumococcal Vaccine: 50+ Years (1 of 1 - PCV) 2022 Zoster Vaccines (1 of 2) 2022 COVID-19 Vaccine (3 - 2024- season) 2025 10/20/2020, 09/22/2020 Influenza Vaccine (#1) 2025 02/16/2016, 2015 SDOH Screening 03/19/2025 03/19/2024 Depression Screening 08/01/2025 08/01/2024, 08/02/19 Tobacco Screening 08/01/2025 08/01/2024 Lipid Panel 04/07/2029 [...] patient's age to complete this topic Meningococcal B Vaccine Aged Out No l onger eligible based on patient's age to complete [...] Name Priority Date/Time Associated Diagnosis Comments PROTHROMBIN TIME WHOLE BLD POC Routine 05/01/2025 3:09 PM EST ~PT, ~INR - ANTI COAG CLINIC Routine 05/01/2025 3:09 PM EST HEPATITIS C AB W/REFL TO HCV [...] Relevant to Health Maintenance Results * (ABNORMAL) PROTHROMBIN TIME WHOLE BLD POC (05/01/2025 3:09 PM EST) Protime 41.2(H) 11.1 - 13.5 sec [facility] 05/01/2025 3:09 PM EST 05/01/2025 3:12 PM EST us Generic External Data Provider LAB BLOOD ORDERAB LES Final Result [facility] [address] [place] [address] [phone] * (ABNORMAL) ~PT, ~INR - ANTI COAG CLINIC (05/01/2025 3:09 PM EST) Prothrombin Time INR 3.4(H) 0.9 - 1.1 [facility] Comment:METER #: [id number] TERNATIONAL NORMALIZED RATIO (INR) REFERENCE RANGES Reference RangeFor patients not on anticoagulant therapy: 0.9 - 1.1INR ranges for oral anticoagulanttherapy:For prevention and treatment of venous thrombosis and pulmonary embolism: 2.0 - 3.0For acute myocardial infarction with aspirin therapy: 2.0 - 3.0For acute myocardial infarction without aspirin therapy: 3.0 - 4.0For patients with mechanical prosthetic heart valves: 2.5 - 3.5 05/01/2025 3:09 PM EST 05/01/2025 3:12 PM EST Generic External Data Provider LAB BLOOD ORDERAB LES Final Result Performing Organization Address [facility]/ZIP Co de Phone Number [facility] [address] [place] [phone] * Hepatitis C Antibody with Reflex to HCV, RNA, Quantitative, Real-Time PCR (04/07/2024 10:03 AM EST) Hepatitis C Antibody Nonreactive Nonreactive [facility] Comment:Antibodies to HCV no t detected; does not exclude early acuteHCV infection. Blood Venous blood specimen / Unknown 04/07/2024 10:03 AM EST 04/07/2024 10:03 AM EST Jordy Osorio MD LAB BLOOD ORDERABLES Final Resul t Performing Organization Address [facility] Co de Phone Number [facility] [address] [place] [phone] * HIV-1/2 Antigen and Antibodies, Fourth Generation, with Reflexes (04/07/2024 10:03 AM EST) HIV AB/AG Nonreactive Nonreactive [facility] Comment:HIV-1 p24 Ag and/or HIV-1/HIV-2 Ab not detected.A test result that is nonreactive does not exclude thepossibility of exposure to or infection with HIV-1 and/orHIV-2. Nonreactive results in this assay for individualswith prior exposure to HIV-1 and/or HIV-2 may be due toantigen and antibody levels that are below the limit ofdetection of this assay.The [employer] HIV Ag/Ab Combo assay result andsupplemental assay results should be interpreted inconjunction with the patient's clinical presentation,history and other laboratory results. If the results areinconsistent with clinical evidence, additional testing issuggested to confirm the result. Blood Venous blood specimen / Unknown 04/07/2024 10:03 AM EST 04/07/2024 10:03 AM EST Jordy Osorio MD LAB BLOOD ORDERABLES Final Resul t Performing Organization Address [facility] de Phone Number [facility] [address] [place] [phone] * (ABNORMAL) Lipid Panel, Standard (04/07/2024 10:03 AM EST) Triglycerides 116 <150 mg/dL [facility] Comment:Desirable Triglyceri de: less than 150 mg/dLBorderline High Triglyceride 150-199 mg/dLHigh Triglyceride: 200-499 mg/dLVery High Triglyceride: greater than or equal to 5OO mg/dL Cholesterol 208(H) <200 mg/dL [facility] Comment:Desirable Cholestero l: less than 200 mg/dLBorderline High Cholesterol: 200-239 mg/dLHigh Cholesterol: greater than 239 mg/dL LDL Cholesterol Calculated 132(H) <100 mg/dL [facility] Comment:Desirable LDL: less than 100 mg/dLNear Optimal/Above Optimal LDL: 110- 129 mg/dLBorderline High LDL: 130-159 mg/dLHigh LDL: 160-189 mg/dLVery High LDL: greater than or equal to 190 mg/dL HDL Cholesterol 53 >40 mg/dL [facility] Comment:Desirable HDL: great er than 40 mg/dL Note: This HDL assay may give artificially low results in patients with liver disease. Blood Venous blood specimen / Unknown 04/07/2024 10:03 AM EST 04/07/2024 10:03 AM EST us oJrdy Osorio MD LAB BLOOD ORDERABLES Final Resul t Performing Organization Address [facility] Co de Phone Number [facility] [address] [place] [phone] from Last 3 Months or Most Recently Relevant to Health Maintenance Insurance Care Teams Tanning Wheel Filler Relationship Specialty Start Date End Date Name, MD Jordy [address] [place] [phone] PCP - General Family Medicine 12/28/17
== END 2025-05-01 15:23 | disposition home or self-care (01) ==
LOC: HO.ACS 14:51
PROVIDERS: PCP Internal Medicine Geriatric Medicine; Visit Provider Internal Medicine Medical Oncology
DX: Z79.01 Long term (current) use of anticoagulants (principal)

== ENCOUNTER → 2025-05-01 14:51 | Outpatient (BNVA) | payer SELFPAY | PROVIDERS: PCP Internal Medicine Geriatric Medicine; Visit Provider Internal Medicine Medical Oncology | DX: Z79.01 Long term (current) use of anticoagulants (principal) | CPT/HCPCS: 85610; 99211 ==